=== PATIENT | female | born 1980 | race Caucasian/White ===

== ENCOUNTER 2019-01-06 11:08 | Emergency (ER) | payer OTHER ==
[2019-01-06 12:11] LABS: Absolute Lymphocytes (CBC) 2.2 K/uL (0.7-4.9); Absolute Monocytes 0.5 K/uL (0.1-1.3); Absolute Neutrophil 3.4 K/uL (1.8-8.0); Basophils % 0.5 % (0-1.3); Eosinophils % 0.9 % (0-4.4); Hematocrit 40.7 % (36.0-45.0); Lymphocytes % 36.1 % (15.3-44.8); Monocytes % 7.3 % (3.3-12.3); RBC Red Blood Cell Count 4.59 M/uL (3.86-4.86)
[2019-01-06 12:28] LABS: Albumin 4.1 g/dL (3.4-5.0); Bilirubin Direct 0.1 mg/dL (0-0.2); Bilirubin Total 0.3 mg/dL (0.2-1.0); Potassium 3.9 mmol/L (3.5-5.1); Protein, Total 7.3 g/dL (6.4-8.2)
[2019-01-06] MEDS ORDERED: ONDANSETRON 4 MG/2 ML VIAL ONE (12:31)
[2019-01-06] MEDS ORDERED: MORPHINE 4 MG/ML SYR ONE (12:31)
[2019-01-06] MEDS ORDERED: NA CHLORIDE 0.9% 1,000 ML ONE (12:31)
--- NOTE | 2019-01-06 12:57 | RAD REPORT ---
EXAM DESCRIPTION: CT - Abdomen Pelvis W Contrast - 01/06/2019 12:43 pm CLINICAL HISTORY: Right lower quadrant pain, worsening pain, diarrhea COMPARISON: July 2012 CT imaging TECHNIQUE: Biphasic, helical CT imaging of the abdomen and pelvis was performed following 100 ml non -ionic IV contrast. No oral contrast administered. All CT scans are performed using dose optimization technique as appropriate and may include automated exposure control or mA/KV adjustment according to patient size. FINDINGS: No suspicious findings in the lung bases. The liver, spleen, and pancreas show no suspicious findings. Gallbladder and biliary tree are also wi thout suspicious finding. Symmetric renal function is seen with no hydronephrosis or suspicious renal mass. No pyelonephritis o r acute parenchymal process. No bladder abnormalities. No adrenal abnormalities. No gastric dilatation or gastric wall thickening. There are several prominent fluid-filled small yusuf l loops. This could indicated nonspecific gastroenteritis. Moderate stool volume is present in the co [place]. Sigmoid colon tortuosity noted. No colon mass. Colitis/ diverticulitis are not evident. Appendec terrell clips are present. No free air, free fluid or inflammatory stranding. No hernia, mass or bulky lymphadenopathy. There i s a soft tissue structure in the pelvis having an appearance typical for the uterus. Hysterectomy his tory was provided. This is probably incorrect history. The presumed uterus is unchanged in appearance from 2012. Ovaries are not clearly defined and may be atrophic or absent. No suspicious bony findings. IMPRESSION: Prominent, nondilated small bowel loops. Findings likely reflect a nonspecific enteritis . Moderate stool volume with no acute colon process identifiable. No bowel obstruction, free air or surgically emergent finding.
--- NOTE | 2019-01-06 13:30 | EDPHYS ---
Physician Documentation [facility] Name: Susan Madrigal Age: 38 yrs Sex: Female : 1980 Arrival Date: 01/06/2019 Time: 11:10 Bed 15 Private MD: Severiano Lyons E ED Physician Jose R Diaz HPI: 01/06 12:00 This 38 yrs old Female presents to ER via Ambulatory with complaints of pm1 Abdominal Pain, Diarrhea. 12:00 The patient presents with abdominal pain right lower quadrant. Onset: The pm1 symptoms/episode began/occurred 3 year(s) ago. The symptoms do not radiate. Associated signs and symptoms: Pertinent positives: diarrhea, Pertinent negatives: nausea and vomiting, blood in stools, chest pain, dysuria, fever, shortness of breath, vomiting blood. The symptoms are described as crampy. Modifying factors: The symptoms are alleviated by nothing, the symptoms are aggravated by nothing. Severity of pain: in the emergency department the pain is actually worse. The patient has experienced similar episodes in the past, chronically, but today's symptoms are worse, lasting longer. The patient has not recently seen a physician. Patient with abdominal pain for 3 years that comes and goes. Has diarrhea almost daily with abdominal pain in the mornings. Pain typically only lasts about 3 days but her pain has been ongoing for 7 days. Patient evaluated by PCP and impression was possible IBS. 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 - Social history:: Smoking status: Patient/guardian denies using tobacco. - Ebola Screening: : No symptoms or risks identified at this time. ROS: 12:00 Constitutional: Negative for fever, chills, and weight loss, Eyes: Negative for injury, pm1 pain, redness, and discharge, ENT: Negative for injury, pain, and discharge, Neck: Negative for injury, pain, and swelling, Cardiovascular: Negative for chest pain, palpitations, and edema, Respiratory: Negative for shortness of breath, cough, wheezing, and pleuritic chest pain. 12:00 Back: Negative for injury and pain, : Negative for injury, bleeding, discharge, and swelling, MS/Extremity: Negative for injury and deformity, Skin: Negative for injury, rash, and discoloration, Neuro: Negative for headache, weakness, numbness, tingling, and seizure. 12:00 Abdomen/GI: Positive for abdominal pain, diarrhea, Negative for nausea and vomiting, black/tarry stool, rectal bleeding. Exam: 12:00 Constitutional: This is a well developed, well nourished patient who is awake, alert, pm1 and in no acute distress. Head/Face: Normocephalic, atraumatic. Eyes: Pupils equal round and reactive to light, extra-ocular motions intact. Lids and lashes normal. Conjunctiva and sclera are non-icteric and not injected. Cornea within normal limits. Periorbital areas with no swelling, redness, or edema. ENT: Nares patent. No nasal discharge, no septal abnormalities noted. Tympanic membranes are normal and external auditory canals are clear. Oropharynx with no redness, swelling, or masses, exudates, or evidence of obstruction, uvula midline. Mucous membranes moist. Neck: Trachea midline, no thyromegaly or masses palpated, and no cervical lymphadenopathy. Supple, full range of motion without nuchal rigidity, or vertebral point tenderness. No Meningismus. Chest/axilla: Normal chest wall appearance and motion. Nontender with no deformity. No lesions are appreciated. Cardiovascular: Regular rate and rhythm with a normal S1 and S2. No gallops, murmurs, or rubs. Normal PMI, no JVD. No pulse deficits. Respiratory: Lungs have equal breath sounds bilaterally, clear to auscultation and percussion. No rales, rhonchi or wheezes noted. No increased work of breathing, no retractions or nasal flaring. Abdomen/GI: Soft, non-tender, with normal bowel sounds. No distension or tympany. No guarding or rebound. No evidence of tenderness throughout. Back: No spinal tenderness. No costovertebral tenderness. Full range of motion. Skin: Warm, dry with normal turgor. Normal color with no rashes, no lesions, and no evidence of cellulitis. MS/ Extremity: Pulses equal, no cyanosis. Neurovascular intact. Full, normal range of motion. 12:00 Neuro: Orientation: is normal, Motor: is normal, moves all fours, Sensation: is normal, no obvious gross deficits. Vital Signs: 11:14 BP 90 / 71; Pulse 106; Resp 16 S; Temp 99.4(TE); Pulse Ox 100% on R/A; Weight 72.57 kg aa5 (R); Height 5 ft. 8 in. (172.72 cm) (R); Pain 6/10; 13:32 BP 105 / 69; Pulse 82; Resp 16; Temp 98.2; Pulse Ox 100% on R/A; Pain 5/10; ls4 11:14 Body Mass Index 24.33 (72.57 kg, 172.72 cm) aa5 MDM: 11:42 Patient medically screened. pm1 13:28 Data reviewed: vital signs. Data interpreted: Pulse oximetry: on room air is 100 %. pm1 Interpretation: normal. Counseling: I had a detailed discussion with the patient and/or guardian regarding: the historical points, exam findings, and any diagnostic results supporting the discharge/admit diagnosis, lab results, radiology results, the need for outpatient follow up, to return to the emergency department if symptoms worsen or persist or if there are any questions or concerns that arise at home. 01/06 11:52 Order name: Basic Metabolic Panel; Complete Time: 13:08 pm01/06 11:52 Order name: CBC with Diff pm1 01/06 11:52 Order name: Creatinine for Radiology; Complete Time: 12:25 pm1 01/06 11:52 Order name: Hepatic Function; Complete Time: 13:08 pm01/06 11:52 Order name: Lipase; Complete Time: 13:08 pm01/06 12:38 Order name: Urine Dipstick--Ancillary (enter results) 01/06 11:52 Order name: CT Abd/Pelvis - W/Contrast: IV contrast only; Complete Time: 13:08 pm01/06 12:38 Order name: Urine --Ancillary (enter results) 01/06 11:52 Order name: IV Saline Lock; Complete Time: 12:07 pm01/06 11:52 Order name: Labs collected and sent; Complete Time: 12:07 pm01/06 11:52 Order name: Urine Dipstick-Ancillary (obtain specimen); Complete Time: 12:17 pm1 Administered Medications: 12:26 Drug: morphine 4 mg Route: IVP; Site: right antecubital; ls4 12:49 Follow up: Response: No adverse reaction; Marked relief of symptoms ls4 12:26 Drug: Zofran 4 mg Route: IVP; Site: right antecubital; ls4 12:49 Follow up: Response: No adverse reaction; Marked relief of symptoms ls4 12:31 Drug: NS 0.9% 1000 ml Route: IV; Rate: 1000 ml; Site: right antecubital; ls4 12:50 Follow up: IV Status: Completed infusion; IV Intake: 1000ml ls4 13:47 Drug: Bentyl 20 mg Route: PO; ls4 13:47 Drug: TORadol 30 mg Route: IVP; Site: right antecubital; ls4 Disposition: 01/06/19 13:30 Discharged to Home. Impression: Unspecified abdominal pain, Diarrhea, unspecified. - Condition is Stable. - Discharge Instructions: Abdominal Pain, Adult, Food Choices to Help Relieve Diarrhea, Adult, Diarrhea, Adult. - Prescriptions for Bentyl 20 mg Oral Tablet - take 1 tablet by ORAL route every 6 hours As needed; 20 tablet. Zofran 4 mg Oral Tablet - take 1 tablet by ORAL route every 12 hours As needed; 20 tablet. - Medication Reconciliation Form, Thank You Letter, Antibiotic Education form. - Follow up: Emergency Department; When: As needed; Reason: Worsening of condition. Follow up: Severiano Bee MD; When: 2 - 3 days; Reason: Recheck today's complaints, Continuance of care, Re-evaluation by your physician. - Problem is new. - Symptoms have improved. Signatures: Dispatcher [employer] EDSD Maricel Bass, RN RN aa5 Roger Davis NP PETROLEUM GEOLOGIST pm1 Zoe Lugo RN RN ls4 Corrections: (The following items were deleted from the chart) 14:00 13:30 01/06/2019 13:30 Discharged to Home. Impression: Unspecified abdominal pain; ls4 Diarrhea, unspecified. Condition is Stable. Forms are Medication Reconciliation Form, Thank You Letter, Antibiotic Education, Prescription Opioid Use. Follow up: Emergency Department; When: As needed; Reason: Worsening of condition. Follow up: Severiano Bee; When: 2 - 3 days; Reason: Recheck today's complaints, Continuance of care, Re-evaluation by your physician. Problem is new. Symptoms have improved. pm1
--- NOTE | 2019-01-06 13:30 | ER ---
Nurse's Notes [facility] Name: Susan Madrigal Age: 38 yrs Sex: Female : 1980 Arrival Date: 01/06/2019 Time: 11:10 Bed 15 Private MD: Severiano Lyons E Diagnosis: Unspecified abdominal pain;Diarrhea, unspecified Presentation: 01/06 11:12 Presenting complaint: Patient states: lower abd pain that has gotten worse over the aa5 last week. Pt reports hx of IBS. Pt also reports nausea and diarrhea, denies vomiting. Transition of care: patient was not received from another setting of care. Onset of symptoms was December 2018. Risk Assessment: Do you want to hurt yourself or someone else? Patient reports no desire to harm self or others. Initial Sepsis Screen: Does the patient meet any 2 criteria? No. Patient's initial sepsis screen is negative. Does the patient have a suspected source of infection? No. Patient's initial sepsis screen is negative. Care prior to arrival: None. 11:12 Method Of Arrival: Ambulatory aa5 11:12 Acuity: JHOAN 3 aa5 Triage Assessment: 12:14 General: Appears in no apparent distress. Behavior is calm, cooperative. Pain: ls4 Complains of pain in suprapubic area Pain currently is 6 out of 10 on a pain scale. GI: Abdomen is flat, non-distended, Bowel sounds present X 4 quads. Abdomen is tender to palpation. 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 - Social history:: Smoking status: Patient/guardian denies using tobacco. - Ebola Screening: : No symptoms or risks identified at this time. Screenin:13 Abuse screen: Denies threats or abuse. Denies injuries from another. Nutritional ls4 screening: No deficits noted. Tuberculosis screening: No symptoms or risk factors identified. The patient passed the bedside swallow screening. Oral medications may be given as ordered. Contact Physician for further diet orders. Fall Risk None identified. Vital Signs: 11:14 BP 90 / 71; Pulse 106; Resp 16 S; Temp 99.4(TE); Pulse Ox 100% on R/A; Weight 72.57 kg aa5 (R); Height 5 ft. 8 in. (172.72 cm) (R); Pain 6/10; 13:32 BP 105 / 69; Pulse 82; Resp 16; Temp 98.2; Pulse Ox 100% on R/A; Pain 5/10; ls4 11:14 Body Mass Index 24.33 (72.57 kg, 172.72 cm) aa5 ED Course: 11:10 Patient arrived in ED. mr 11:10 Severiano Lyons MD is Private Physician. mr 11:12 Arm band placed on. aa5 11:13 Triage completed. aa5 11:34 Roger Davis NP is [facility]. pm1 11:34 Jose R Diaz MD is Attending Physician. pm1 11:56 Zoe Lugo, ANTONIO is Primary Nurse. ls4 12:07 Basic Metabolic Panel Sent. ls4 12:07 CBC with Diff Sent. ls4 12:07 Creatinine for Radiology Sent. ls4 12:07 Hepatic Function Sent. ls4 12:07 Lipase Sent. ls4 12:07 Initial lab(s) drawn, by ks, sent to lab. Urine collected: clean catch specimen, clear. ls4 Inserted saline lock: 20 gauge in right antecubital area, using aseptic technique. Blood collected. 12:13 Patient has correct armband on for positive identification. Placed in gown. Bed in low ls4 position. Call light in reach. Side rails up X 1. Warm blanket given. 12:13 No provider procedures requiring assistance completed. ls4 12:42 CT completed. Patient tolerated procedure well. Patient moved to CT via wheelchair. jg6 Patient moved back from CT. 12:43 CT Abd/Pelvis - W/Contrast: IV contrast only In Process Unspecified. EDMS 13:29 Severiano Bee MD is Referral Physician. pm1 Administered Medications: 12:26 Drug: morphine 4 mg Route: IVP; Site: right antecubital; ls4 12:49 Follow up: Response: No adverse reaction; Marked relief of symptoms ls4 12:26 Drug: Zofran 4 mg Route: IVP; Site: right antecubital; ls4 12:49 Follow up: Response: No adverse reaction; Marked relief of symptoms ls4 12:31 Drug: NS 0.9% 1000 ml Route: IV; Rate: 1000 ml; Site: right antecubital; ls4 12:50 Follow up: IV Status: Completed infusion; IV Intake: 1000ml ls4 13:47 Drug: Bentyl 20 mg Route: PO; ls4 13:47 Drug: TORadol 30 mg Route: IVP; Site: right antecubital; ls4 Intake: 12:50 IV: 1000ml; Total: 1000ml. ls4 Outcome: 13:30 Discharge ordered by . pm1 14:00 Patient left the ED. ls4 Signatures: Dispatcher [employer] EDMA Elham Plascencia KaliMaricel, RN RN aa5 Roger Davis NP PACKING LINE OPERATOR pm1 Christy Bradley6 Zoe Lugo RN RN ls4
[2019-01-06] MEDS ORDERED: DICYCLOMINE HCL 10 MG CAP ONE (13:55)
[2019-01-06] MEDS ORDERED: KETOROLAC 30 MG/ML INJ ONE (13:55)
[2019-01-06 14:13] LABS: Urine Blood NEGATIVE (NEG); Urine Glucose NEGATIVE (NEG); Urine Protein NEGATIVE (NEG)
[2019-01-06 14:43] VITALS: O2SAT 100
[2019-01-06 14:44] VITALS: BP 105/69; TEMP 98.2
== END 2019-01-06 14:00 | disposition home or self-care (01) ==
LOC: ER 11:08
DX: R19.7 Diarrhea, unspecified (principal)
CPT/HCPCS: 36415; 74177; 80048; 80076; 81003; 81025; 83690; 85025; 96374; 96375; 99284; J2405; J7030; Q9967

== ENCOUNTER 2020-01-04 19:59 | Emergency (ER) | payer OTHER ==
--- OUTSIDE RECORDS SUMMARY | 2020-01-04 20:01 | XMS REPORT | Summary of Care ---
:1980 Author Organization [facility] - Health Address [address] [place] [id number] Care Team Providers Name Role Phone Severiano Lyons Primary Care Provider Encounter Details Date Type Department Care Team Description 07/18/2019 Orders Only [facility] Doctor Unassigned, No 301 [facility] Name [place] [id number] [address] [place] [phone] Allergies No Known Allergiesdocumented as of this encounter (statuses as of 07/18/2019) Medications Medication Sig Dispensed Refills Start Date End Date Status ibuprofen 800 mg Take 800 mg by 0 Active tablet mouth every 6 (six) hours as needed for Pain (scale 1-3) or Pain (scale 4-6). traMADOL 50 mg tablet Take 50 mg by 0 Active mouth 3 (three) times daily. ondansetron (ZOFRAN) 4 Take 1 tablet by 10 tablet 0 04/24/2019 Active mg tabletIndications: mouth every 8 Abdominal pain in (eight) hours as female needed for Nausea and Vomiting (N/V) for up to 10 doses. acetaminophen-codeine Take 1 tablet by 20 tablet 0 04/24/2019 Active 300-30 mg mouth every 6 tabletIndications: (six) hours as Abdominal pain in needed for Pain female (scale 4-6) for up to 20 doses. documented as of this encounter (statuses as of 07/18/2019) Active Problems Not on filedocumented as of this encounter (statuses as of 07/18/2019) Immunizations Name Administration Dates Next Due Td 04/02/2017 documented as of this encounter Social History Tobacco Use Types Packs/Day Years Used Date Never Assessed Sex Assigned at Date Recorded Not on file Job Start Date Occupation Industry Not on file Not on file Not on file Travel History Travel Start Travel End No recent travel history available. documented as of this encounter Last Filed Vital Signs Not on filedocumented in this encounter Plan of Treatment Health Maintenance Due Date Last Done Comments PAP SMEAR 01/28/2001 DTaP,Tdap,and Td Vaccines (1 - 04/03/2017 04/02/2017 Tdap) INFLUENZA VACCINE (Retired 07/17/2019 version) PNEUMOCOCCAL 0-64 YEARS COMBINED Aged Out No longer eligible based on SERIES patient's age to complete this topic documented as of this encounter Procedures Procedure Name Priority Date/Time Associated Diagnosis Comments CONSENT/REFUSAL FOR Routine 07/18/2019 2:50 PM CDT DIAGNOSIS AND TREATMENT documented in this encounter Results Not on filedocumented in this encounter Insurance Payer Benefit Plan / Group Subscriber ID Effective Dates Phone Address Type [place] [id number] 2012-Present [place] [id number] 2019-Present documented as of this encounter
--- OUTSIDE RECORDS SUMMARY | 2020-01-04 20:01 | XMS REPORT ---
:1980 [facility] Address [address] [place] [address] Dr. Alcazar [address] [place] [id number] Care Team Providers Name Role Phone Unavailable Unavailable Unavailable Problems This patient has no known problems. Allergies, Adverse Reactions, Alerts This patient has no known allergies or adverse reactions. Medications This patient has no known medications.
--- OUTSIDE RECORDS SUMMARY | 2020-01-04 20:02 | XMS REPORT | Summary of Care ---
:1980 Author Organization [facility] - Health Address [address] [place] [address] Care Team Providers Name Role Phone Severiano Lyons Primary Care Provider Encounter Details Date Type Department Care Team Description 01/04/2020 Orders Only [facility] Doctor Unassigned, No 301 [facility] [place] [address] [address] [place] [phone] Allergies No Known Allergiesdocumented as of this encounter (statuses as of 01/04/2020) Medications Medication Sig Dispensed Refills Start Date [...] (scale 4-6) for up to 20 doses. dicyclomine (BENTYL) Take 1 tablet by 15 tablet 0 07/18/2019 Active 20 mg mouth 4 (four) tabletIndications: times daily as Abdominal pain, needed for unspecified abdominal Abdominal pain. location, Urinary tract infection without hematuria, site unspecified, Fever, unspecified fever cause, Tachycardia proMETHazine 25 mg Take 0.5 tablets 8 tablet 0 07/18/2019 Active tabletIndications: by mouth every 6 Abdominal pain, (six) hours as unspecified abdominal needed for Nausea location, Urinary and Vomiting tract infection (N/V). 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
--- OUTSIDE RECORDS SUMMARY | 2020-01-04 20:02 | XMS REPORT | Summary of Care ---
:1980 Author Organization [facility] - [facility] Address [address] [place] [address] Care Team Providers Name Role Phone Severiano Lyons Primary Care Provider Reason for Referral MRI/CAT Scan (STAT) Status Reason Specialty Diagnoses / Referred By Referred To Procedures Contact Contact New Request Diagnostic Diagnoses Abdominal pain, unspecified abdominal location Joselin Baugh, Radiology Procedures CT ABDOMEN PELVIS W CONTRAST [address] [address] MRI/CAT Scan (STAT) Status Reason Specialty Diagnoses / Referred By Referred To Procedures Contact Contact New Request Diagnostic Diagnoses Abdominal pain, unspecified abdominal location Joeslin Baugh, Radiology Procedures CT ABDOMEN PELVIS W CONTRAST [address] [id number] Reason for Visit Reason Comments Abdominal Pain Fever Auth/Cert Status Reason Specialty Diagnoses / Referred By Referred To Procedures Contact Contact Emergency Medicine Diagnoses ABD [facility]IN [facility] [address] [place] [address] [place] [address] Encounter Details Date Type Department Care Team Description 07/18/2019 Emergency [facility] Joselin Baugh FNP Abdominal pain, unspecified abdominal location (Primary Dx); Department [address] [place] [address] Urinary tract infection without hematuria, site unspecified; [address] [place] [address] Dr [place] Fever, unspecified fever cause; [place] [id number] Tachycardia [phone] Allergies No Known Allergiesdocumented as of this encounter (statuses as of 07/18/2019) Medications Medication Sig Dispensed Refills Start Date End Date Status ibuprofen 800 mg Take 800 mg by 0 Active tablet mouth every 6 (six) hours as needed for Pain (scale 1-3) or Pain (scale 4-6). traMADOL 50 mg Take 50 mg by 0 Active tablet mouth 3 (three) times daily. ondansetron (ZOFRAN) Take 1 tablet by 10 tablet 0 04/24/2019 Active 4 mg mouth every 8 tabletIndications: (eight) hours as Abdominal pain in needed for Nausea female and Vomiting (N/V) for up to 10 doses. acetaminophen-codein Take 1 tablet by 20 tablet 0 04/24/2019 Active e 300-30 mg mouth every 6 tabletIndications: (six) hours as Abdominal pain in needed for Pain female (scale 4-6) for up to 20 doses. cephALEXin 500 mg Take 1 capsule by 14 capsule 0 07/18/2019 07/25/2019 Active capsuleIndications: mouth 2 (two) Abdominal pain, times daily for 7 unspecified days. abdominal location, Urinary tract infection without hematuria, site unspecified, Fever, unspecified fever cause, Tachycardia dicyclomine (BENTYL) Take 1 tablet by 15 tablet 0 07/18/2019 Active 20 mg mouth 4 (four) tabletIndications: times daily as Abdominal pain, needed for unspecified Abdominal pain. abdominal location, Urinary tract infection without hematuria, site unspecified, Fever, unspecified fever cause, Tachycardia proMETHazine 25 mg Take 0.5 tablets 8 tablet 0 07/18/2019 Active tabletIndications: by mouth every 6 Abdominal pain, (six) hours as unspecified needed for Nausea abdominal location, and Vomiting Urinary tract (N/V). infection without hematuria, site unspecified, Fever, unspecified [...] of this encounter Last Filed Vital Signs Vital Sign Reading Time Taken Comments Blood Pressure 105/71 07/18/2019 6:15 PM CDT Pulse 68 07/18/2019 6:16 PM CDT Temperature 38.1 C (100.5 F) 07/18/2019 3:00 PM CDT Respiratory Rate 20 07/18/2019 5:50 PM CDT Oxygen Saturation 100% 07/18/2019 6:15 PM CDT Inhaled Oxygen Concentration - - Weight 63.5 kg (140 lb) 07/18/2019 3:00 PM CDT Height 172.7 cm (5' 8") 07/18/2019 3:00 PM CDT Body Mass Index 21.29 07/18/2019 3:00 PM CDT documented in this encounter Discharge Instructions Joselin Gibson FNP - 07/18/2019DIAGNOSIS 1. Abdominal pain 2. Urinary tract infection 3. Fever NO LIFE-THREATENING FINDINGS ON TODAY'S EXAM. PROCEDURES IN THE ER TODAY: Labs Urinalysis CT MEDICATIONS ADMINISTERED IN THE ER TODAY: Morphine Toradol Fentanyl Bentyl Fluids Zofran Ancef YOUR PRESCRIPTIONS AND [id number] MEDICATION RECOMMENDATIONS: Bentyl Phenergan Keflex SPECIAL CARE INSTRUCTIONS: Follow up with your card cutter FOLLOW-UP RECOMMENDATIONS: RECOMMEND FOLLOW-UP WITH A PRIMARY CARE PROVIDER OR SPECIALIST IN 2-5 DAYS, ESPECIALLY IF NO IMPROVEMENT IN SYMPTOMS. TO FOLLOW-UP WITHIN THE [facility], TRY THESE OPTIONS (CLINIC APPOINTMENTS AVAILABLE ON OCTT-AD-WNEB BASIS): 1. SCHEDULE AN APPOINTMENT ONLINE AT [facility] 2. OR CALL THE [facility] AT OR 3. OR CALL YOUR [facility] PHYSICIAN'S OFFICE DIRECTLY IF YOU ARE ALREADY AN ESTABLISHED [facility] PATIENT. OR, YOU MAY FOLLOW-UP WITH A PROVIDER OF YOUR CHOICE, SUCH : 1. A PHYSICIAN OF YOUR CHOICE 2. [facility], . LOCATIONS IN [facility] 3. [facility], [address] [place] [address]; RETURN TO ER FOR WORSENING OF SYMPTOMS. AttachmentsThe following attachments cannot be sent through Care Everywhere.Cephalexin tablets or capsules (Senegalese)Promethazine tablets (Senegalese )Dicyclomine tablets or capsules (Senegalese)documented in this encounter Plan of Treatment Name Type Priority Associated Diagnoses Date/Time URINE CULTURE LAB STAT Abdominal pain, unspecified 07/18/2019 6:14 PM CDT abdominal location Name Type Priority Associated Diagnoses Order Schedule URINE CULTURE LAB Routine Abdominal pain, unspecified ONCE for 1 Occurrences abdominal location starting 07/18/2019 until 07/18/2019 Health Maintenance Due Date Last Done Comments PAP SMEAR 01/28/2001 DTaP,Tdap,and Td Vaccines (1 - 04/03/2017 04/02/2017 Tdap) INFLUENZA VACCINE (#1) 2019 PNEUMOCOCCAL 0-64 YEARS COMBINED Aged Out No longer eligible based on SERIES patient's age to complete this topic documented as of this encounter Procedures Procedure Name Priority Date/Time Associated Comments Diagnosis CT ABDOMEN PELVIS W STAT 07/18/2019 4:57 Abdominal pain, Results for this CONTRAST PM CDT unspecified procedure are in abdominal location the results section. CBC WITH STAT 07/18/2019 3:28 Abdominal pain, Results for this DIFFERENTIAL PM CDT unspecified procedure are in abdominal location the results section. POCT TEST BELEN 07/18/2019 3:28 Abdominal pain, Results for this PM CDT unspecified procedure are in abdominal location the results section. URINALYSIS STAT 07/18/2019 3:28 Abdominal pain, Results for this PM CDT unspecified procedure are in abdominal location the results section. CBC WITH DIFF STAT 07/18/2019 3:28 Abdominal pain, Results for this PM CDT unspecified procedure are in abdominal location the results section. COMP. METABOLIC STAT 07/18/2019 3:28 Abdominal pain, Results for this PANEL (61592) PM CDT unspecified procedure are in abdominal location the results section. TROPONIN I STAT Add-On 07/18/2019 3:28 Abdominal pain, Results for this PM CDT unspecified procedure are in abdominal location the results section. LIPASE STAT 07/18/2019 3:28 Abdominal pain, Results for this PM CDT unspecified procedure are in abdominal location the results section. LACTIC ACID WHOLE STAT 07/18/2019 3:27 Abdominal pain, Results for this BLOOD PM CDT unspecified procedure are in abdominal location the results section. NOTICE OF PRIVACY Routine 07/18/2019 2:50 PRACTICES PM CDT documented in this encounter Results CT ABDOMEN PELVIS W CONTRAST (07/18/2019 4:57 PM CDT) Specimen Impressions Performed At PACS/VR/DOSE 1.Mild concentric bladder wall thickening concerning for cystitis. Laboratory correlation is recommended . Huy Rosado MD., have reviewed this study and agree with the above report. Narrative Performed At EXAM: CT ABDOMEN/PELVIS WITH CONTRAST PACS/VR/DOSE HISTORY:39 years-old Female presenting with Abd pain, acute, generalized, with fever COMPARISON: CT abdomen pelvis 04/24/2019 DOSE: 261 mGycm TECHNIQUE AND FINDINGS: Contiguous axial imaging from the level of the lung bases through the pubic symphysis was performed after the uncomplicated administration of 120 cc of intravenous Omnipaque contrast. Coronal and sagittal reconstructions were obtained.Auto mA and/or iterative reconstruction were used to reduce radiation dose. FINDINGS: LOWER THORAX: The lung bases are clear. No cardiomegaly. HEPATOBILIARY: Subcentimeter hypodensity in hepatic segment IV CT for further characterize, but likely represents a simple hepatic cysts. No biliary ductal dilation. No gallbladder wall thickening. SPLEEN: No splenomegaly. No abnormality identified in the spleen. PANCREAS: No ductal dilation or masses. No abnormality identified in the pancreas. ADRENAL GLANDS: No adrenal nodules. No abnormality identified in the adrenal glands. KIDNEYS: No hydronephrosis, stones, or masses. The kidneys enhance symmetrically without evidence of wedge-shaped hypodensities. PERITONEUM AND RETROPERITONEUM: No free air or fluid. LYMPH NODES: No enlarged lymph nodes by CT size criteria. GI TRACT: No bowel wall thickening or dilation. Prior appendectomy. PELVIS/BLADDER: Prior partial hysterectomy. The urinary bladder is distended with mild concentric wall thickening. 2.1 cm cyst is seen in the right ovary likely consistent with a dominant follicle. VESSELS: Unremarkable. BONES AND SOFT TISSUES: A T12 superior endplate Schmorl's node is noted. No suspicious lytic or sclerotic bony lesions. Procedure Note [facility], Radiant Results Inft User - 07/18/2019 7:21 PM CDT EXAM: CT ABDOMEN/PELVIS WITH CONTRAST HISTORY: 39 years-old Female presenting with Abd pain, acute, generalized, with fever COMPARISON: CT abdomen pelvis 04/24/2019 DOSE: 261 mGycm TECHNIQUE AND FINDINGS: Contiguous axial imaging from the level of the lung bases through the pubic symphysis was performed after the uncomplicated administration of 120 cc of intravenous Omnipaque contrast. Coronal and sagittal reconstructions were obtained. Auto mA and/or iterative reconstruction were used to reduce radiation dose. FINDINGS: LOWER THORAX: The lung bases are clear. No cardiomegaly. HEPATOBILIARY: Subcentimeter hypodensity in hepatic segment IV CT for further characterize, but likely represents a simple hepatic cysts. No biliary ductal dilation. No gallbladder wall thickening. SPLEEN: No splenomegaly. No abnormality identified in the spleen. PANCREAS: No ductal dilation or masses. No abnormality identified in the pancreas. ADRENAL GLANDS: No adrenal nodules. No abnormality identified in the adrenal glands. KIDNEYS: No hydronephrosis, stones, or masses. The kidneys enhance symmetrically without evidence of wedge-shaped hypodensities. PERITONEUM AND RETROPERITONEUM: No free air or fluid. LYMPH NODES: No enlarged lymph nodes by CT size criteria. GI TRACT: No bowel wall thickening or dilation. Prior appendectomy. PELVIS/BLADDER: Prior partial hysterectomy. The urinary bladder is distended with mild concentric wall thickening. 2.1 cm cyst is seen in the right ovary likely consistent with a dominant follicle. VESSELS: Unremarkable. BONES AND SOFT TISSUES: A T12 superior endplate Schmorl's node is noted. No suspicious lytic or sclerotic bony lesions. IMPRESSION 1. Mild concentric bladder wall thickening concerning for cystitis. Laboratory correlation is recommended . IJacey MD., have reviewed this study and agree with the above report. Performing Organization Address City/State/Zipcode Phone Number PACS/VR/DOSE TROPONIN I (07/18/2019 3:28 PM CDT) TROPONIN I <0.012 <=0.034 ng/mL [facility] Specimen Blood - ARM, RIGHT Narrative Performed At Equal or Less than 0.034 ng/ml---Normal [facility] Note: Cardiac troponin begins to rise 3-4 hours after the onset of ischemia. Repeat in 4-6 hours if the sample was drawn within 3-4 hours of the onset of the symptom and found normal. Between 0.035 and 0.120 ng/mL--- Borderline. Questionable myocardial injury or necrosis Note: Serial measurement may be necessary to confirm or exclude the diagnosis of myocardial injury or necrosis; Clinical correlation (symptoms, EKGs, imaging studies, and others) required; Repeat in 4-6 hours if clinically indicated. Equal or Higher than 0.121 ng/mL---Abnormal. Myocardial Injury or Necrosis Likely Biotin has been reported to cause a negative bias, interpret results relative to patient's use of biotin. Performing Organization Address City/[facility]/Zipcode Phone Number [facility] CLIA: [id number], [address] [place] [address] LIPASE (07/18/2019 3:28 PM CDT) LIPASE 165 0 - 220 U/L [facility] Specimen Blood - ARM, RIGHT Performing Organization Address [facility]/Zipcode Phone Number [facility] CLIA: [id number], [address] [place] [address] CBC WITH DIFFERENTIAL (07/18/2019 3:28 PM CDT) WBC 5.17 4.30 - 11.10 [facility] 10*3/L [facility] RBC 4.90 3.93 - 5.25 [facility] 10*6/L HOSPITAL LABORATORY HGB 14.9 11.6 - 15.0 g/dL [facility] HCT 43.1 35.7 - 45.2 % [facility] MCV 88.0 80.6 - 95.5 fL [facility] MCH 30.4 25.9 - 32.8 pg [facility] MCHC 34.6 31.6 - 35.1 g/dL [facility] RDW-SD 39.7 39.0 - 49.9 fL [facility] RDW-CV 12.5 12.0 - 15.5 % [facility] PLT 349 166 - 358 [facility] 10*3/L [facility] MPV 10.8 9.5 - 12.9 fL [facility] NRBC/100 WBC 0.0 0.0 - 10.0 /100 [facility] NRBC x10^3 <0.01 10*3/L [facility] GRAN MAT (NEUT) % 51.7 % [facility] IMM GRAN % 0.40 % [facility] LYMPH % 37.9 % [facility] MONO % 7.5 % [facility] EOS % 1.5 % [facility] BASO % 1.0 % [facility] GRAN MAT x10^3(ANC) 2.67 1.88 - 7.09 [facility] 10*3/uL HOSPITAL LABORATORY IMM GRAN x10^3 <0.03 0.00 - 0.06 [facility] 10*3/uL HOSPITAL [facility] LYMPH x10^3 1.96 1.32 - 3.29 [facility] 10*3/uL HOSPITAL LAB[facility]ORY MONO x10^3 0.39 0.33 - 0.92 [facility] 10*3/uL HOSPITAL LAB[facility]ORY EOS x10^3 0.08 0.03 - 0.39 [facility] 10*3/uL [facility] BASO x10^3 0.05 0.01 - 0.[address]uL [facility] Specimen Blood - ARM, RIGHT Performing Organization Address City/State/Zipcode Phone Number [facility] CLIA: [id number], [address] [place] [address] URINALYSIS (07/18/2019 3:28 PM CDT) APPEARANCE Slightly Cloudy (A) Clear [facility] COLOR Yellow Yellow [facility] PH 5.5 4.8 - 8.0 [facility] SP GRAVITY 1.025 1.003 - 1.030 [facility] GLU U QUAL Negative Negative [facility] BLOOD Negative Negative [facility] KETONES Trace (A) Negative [facility] PROTEIN 30 mg/dL (A) Negative [facility] UROBILIN 0.2 mg/dL 0-1.0 mg/dL [facility] BILIRUBIN Small (A) Negative [facility] NITRITE Negative Negative [facility] LEUK LIVAN Negative Negative [facility] RBC/HPF 0 0 - 3 HPF [facility] WBC/HPF 10 (H) 0 - 5 HPF [facility] BACTERIA Many (A) Negative [facility] TRANS EPI 3 (H) <=1 HPF [facility] ELADIA EPITH 5 HPF [facility] Ictotest Negative [facility] Specimen Urine - URINE, CLEAN CATCH Performing Organization Address City/State/Zipcode Phone Number [facility] CLIA: [id number], [address] [place] [address] POCT TEST (07/18/2019 3:28 PM CDT) POCT PREG NEGATIVE On board controls acceptable present with C Line POCT PREG LOT # [id number] POCT PREG TEST DATE 11/15/2020 Specimen Urine - URINE, CLEAN CATCH COMP. METABOLIC PANEL (80694) (07/18/2019 3:28 PM CDT) NA 143 135 - 145 [facility] mmol/L [facility] K 3.9 3.5 - 5.0 [facility] mmol/L [facility] CL 104 98 - 108 mmol/L [facility] CO2 TOTAL 24 23 - 31 mmol/L [facility] AGAP 15 2 - 16 [facility] BUN 12 7 - 23 mg/dL [facility] GLUCOSE 107 70 - 110 mg/dL [facility] CREATININE 1.16 (H) 0.50 - 1.04 [facility] mg/dL [facility] TOTAL BILI 0.6 0.1 - 1.1 mg/dL [facility] CALCIUM 9.6 8.6 - 10.6 [facility] mg/dL [facility] T PROTEIN 8.6 (H) 6.3 - 8.2 g/dL [facility] ALBUMIN 4.9 3.5 - 5.0 g/dL [facility] ALK PHOS 45 34 - 122 U/L [facility] ALT(SGPT) 13 9 - 51 U/L [facility] AST(SGOT) 23 13 - 40 U/L [facility] eGFR Calculation 52.0 mL/min/1.73m2 [facility] ([facility] Hungarian) eGFR Calculation 63.0 mL/min/1.73m2 [facility] () [facility] Specimen Blood - ARM, RIGHT Narrative Performed At Association of Glomerular Filtration Rate (GFR) [facility] and Staging of Kidney Disease* + + +- + | GFR (mL/min/1.73 m2)| With Kidney Damage|Without Kidney Damage + + +- + |>90| Stage one| Normal + + +- + |60-89|S tage two| Decreased GFR + + +- + |30-59|S tage three| Stage three + + +- + |15-29|S tage four | Stage four + + +- + |<15 (or dialysis)|Stage five | Stage five + + +- + *Each stage assumes the associated GFR level has been in effect for at least three months.Stages 1 to 5, with or without kidney disease, indicate chronic kidney disease. Notes: Determination of stages one and two (with eGFR >59mL/min/1.73 m2) requires estimation of kidney damage for at least three months as defined by structural or functional abnormalities of the kidney, manifested by either: Pathological abnormalities or Markers of kidney damage (including abnormalities in the composition of the blood or urine or abnormalities in imaging tests). Performing Organization Address [facility] Cent[facility]ode Phone Number [facility] CLIA: [id number], [address] [place] [address] Lactic Acid Whole Blood (07/18/2019 3:27 PM CDT) LACTIC ACID 1.39 0.50 - 2.20 mmol/L [facility] Specimen Blood - ARM, RIGHT Performing Organization Address [facility] Centercode Phone Number [facility] CLIA: [id number], [address] [place] [address] [address] documented in this encounter Visit Diagnoses Diagnosis Abdominal pain, unspecified abdominal location - Primary Urinary tract infection without hematuria, site unspecified Fever, unspecified fever cause Tachycardia Tachycardia, unspecified documented in this encounter Administered Medications Medication Order MAR Action Action Date Dose Rate Site acetaminophen (TYLENOL) tablet Given 07/18/2019 3:31 PM CDT 650 mg 650 mg 650 mg, Oral, ONCE, 1 dose, Thu07/18/19 at 1615, BELEN ceFAZolin (ANCEF) 1,000 mg in NaCl 0.9% Given 07/18/2019 6:33 PM CDT 1,000 mg (NS) 50 mL MINI-BAG 1,000 mg, IV Piggyback, ONCE, 1 dose, Thu07/18/19 at 1930, 50 mL, Reason for Anti-Infective: Documented Infection, Documented Infection Site: Urine, Duration of Therapy: 7 days dicyclomine (BENTYL) capsule 20 mg Given 07/18/2019 5:53 PM CDT 20 mg 20 mg, Oral, ONCE, 1 dose, Thu07/18/19 at 1830, Routine famotidine (PEPCID (PF)) injection 20 mg Given 07/18/2019 3:31 PM CDT 20 mg 20 mg, Slow IV Push, ONCE, 1 dose, Thu07/18/19 at 1615, BELEN FENTanyl PF (SUBLIMAZE (PF)) injection 50 Given 07/18/2019 5:51 PM CDT 50 mcg mcg 50 mcg, Slow IV Push, ONCE, 1 dose, Thu07/18/19 at 1830, STAT iohexol (OMNIPAQUE 350 BULK-150 mL) Given 07/18/2019 4:45 PM CDT 120 mL injection 120 mL 120 mL, Intravenous, ONCE, 1 dose, Thu07/18/19 at 1700, Routine ketorolac (TORADOL) injection 30 mg Given 07/18/2019 5:48 PM CDT 30 mg 30 mg, Slow IV Push, ONCE, 1 dose, Thu07/18/19 at 1830, BELEN, body team member approving Restricted medication: JOSELIN BAUGH lactated ringers IV infusion New Bag 07/18/2019 5:20 PM CDT 1,000 mL 999 mL/hr 1,000 mL at 999 mL/hr, 1,000 mL, IV Infusion, ONCE, 1 dose, Thu07/18/19 at 1800, BELEN maalox:diphenhydrAMINE:lidocaine2 %viscous Given 07/18/2019 4:15 PM CDT 15 mL 1:1:1: suspension (COMPOUNDED) 15 mL, Oral, ONCE, 1 dose, Thu07/18/19 at 1615, Routine morpHINE injection 4 mg Given 07/18/2019 3:30 PM CDT 4 mg 4 mg, Slow IV Push, ONCE, 1 dose, Thu07/18/19 at 1615, STAT NaCl 0.9% (NS) bolus infusion New Bag 07/18/2019 3:30 PM CDT 1,000 mL 999 mL/hr 1,000 mL at 999 mL/hr, 1,000 mL, IV Infusion, ONCE, 1 dose, Thu07/18/19 at 1615, STAT proMETHazine (PHENERGAN) 12.5 mg in NaCl Given 07/18/2019 4:15 PM CDT 12.5 mg 0.9% (NS) 50 mL piggyback 12.5 mg, IV Piggyback, ONCE, 1 dose, 07/18/19 at 1615, 50 mL documented in this encounter documented as of this encounter
[2020-01-04] MEDS ORDERED: MORPHINE 4 MG/ML SYR ONE (20:48)
[2020-01-04] MEDS ORDERED: ONDANSETRON 4 MG/2 ML VIAL ONE (20:48)
[2020-01-04 20:51] LABS: Hematocrit 41.7 % (36.0-45.0); RBC Red Blood Cell Count 4.61 M/uL (3.86-4.86)
[2020-01-04 20:52] LABS: Absolute Lymphocytes (CBC) 2.4 K/uL (0.7-4.9); Basophils % 0.5 % (0-1.3); Lymphocytes % 34.9 % (15.3-44.8); MPV 8.9 fL (7.6-11.3)
[2020-01-04] MEDS ORDERED: KETOROLAC 30 MG/ML INJ ONE (20:52)
[2020-01-04] MEDS ORDERED: FENTANYL CITR 100 MCG/2 ML ONE (21:43)
[2020-01-04 22:03] LABS: Urine Blood NEGATIVE (NEG); Urine Glucose NEGATIVE (NEG); Urine Protein NEGATIVE (NEG); Urine pH 5.5 (5.0-7.0)
[2020-01-04 22:09] LABS: Albumin 3.8 g/dL (3.4-5.0); Bilirubin Direct 0.2 mg/dL (0-0.2); Bilirubin Total 0.7 mg/dL (0.2-1.0); Potassium 3.6 mmol/L (3.5-5.1); Protein, Total 7.1 g/dL (6.4-8.2)
--- NOTE | 2020-01-04 23:23 | ER ---
Nurse's Notes [facility] Name: Susan Madrigal Age: 39 yrs Sex: Female : 1980 Arrival Date: 01/04/2020 Time: 20:01 Bed 13 Private MD: Diagnosis: Constipation, unspecified Presentation: 01/04 20:20 Presenting complaint: Patient states: i have this sharp stabbing pain on the right side rr5 of my abdomen radiates to my chest started with constant dull ache yesterday. went to urgent care they advised me to go ER. 20:20 Transition of care: patient was not received from another setting of care. Onset of rr5 symptoms was January 03, 2020. Risk Assessment: Do you want to hurt yourself or someone else? Patient reports no desire to harm self or others. Initial Sepsis Screen: Does the patient meet any 2 criteria? No. Patient's initial sepsis screen is negative. Does the patient have a suspected source of infection? No. Patient's initial sepsis screen is negative. Care prior to arrival: Medication(s) given: tramadol. 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 - Coronavirus screen:: The patient has NOT traveled to [place] in the past 14 days. Proceed with normal triage process as indicated. - Social history:: Smoking status: Patient reports the use of cigarette tobacco products, smokes one-half pack cigarettes per day, Patient uses alcohol, but reports only rare drinking. Patient/guardian denies using street drugs. - Ebola Screening: : Patient negative for fever greater than or equal to 101.5 degrees Fahrenheit, and additional compatible Ebola Virus Disease symptoms Patient denies exposure to infectious person Patient denies travel to an Ebola-affected area in the 21 days before illness onset. Screenin:25 Abuse screen: Denies threats or abuse. Denies injuries from another. Nutritional rr5 screening: No deficits noted. Tuberculosis screening: No symptoms or risk factors identified. Fall Risk IV access (20 points). Total Quintanilla Fall Scale indicates No Risk (0-24 pts). Assessment: 20:20 General: Appears in no apparent distress. uncomfortable, Behavior is calm, cooperative, rr5 appropriate for age. 20:20 Pain: Complains of pain in right upper quadrant and left upper quadrant Pain radiates rr5 to chest Pain currently is 5 out of 10 on a pain scale. at worst was 8 out of 10 on a pain scale. Quality of pain is described as aching, dull, sharp, shooting, stabbing, Pain began 1 day ago. Is intermittent. Neuro: Level of Consciousness is awake, alert, obeys commands, Oriented to person, place, time, situation. Cardiovascular: Capillary refill < 3 seconds Patient's skin is warm and dry. Respiratory: Airway is patent Respiratory effort is even, unlabored, Respiratory pattern is regular, symmetrical. GI: Abdomen is round Bowel sounds present X 4 quads. Guarding noted in right upper quadrant and left upper quadrant Reports upper abdominal pain, Patient currently denies diarrhea, nausea, vomiting. : No signs and/or symptoms were reported regarding the genitourinary system. EENT: No signs and/or symptoms were reported regarding the EENT system. Derm: Skin is intact, is healthy with good turgor, Skin temperature is warm. Musculoskeletal: Circulation, motion, and sensation intact. Capillary refill < 3 seconds. 20:40 Reassessment: Patient appears in no apparent distress at this time. ultrasound at rr5 bedside. 21:30 Reassessment: Patient appears in no apparent distress at this time. ED provider aware rr5 with order made and carried out. Patient states symptoms have not improved. 22:15 Reassessment: Patient appears in no apparent distress at this time. Patient is alert, rr5 oriented x 3, equal unlabored respirations, skin warm/dry/pink. awaiting for CT result. Patient states feeling better. Patient states symptoms have improved. 23:00 Reassessment: Patient appears in no apparent distress at this time. Patient and/or rr5 family updated on plan of care and expected duration. Pain level reassessed. Patient is alert, oriented x 3, equal unlabored respirations, skin warm/dry/pink. 01/05 00:00 Reassessment: Patient appears in no apparent distress at this time. Patient is alert, rr5 oriented x 3, equal unlabored respirations, skin warm/dry/pink. discharge instruction given and explained without complaints made. Patient states feeling better. Patient states symptoms have improved. Vital Signs: 01/04 20:20 BP 126 / 108; Pulse 88; Resp 19; Temp 98.2; Pulse Ox 99% ; Weight 70.31 kg; Height 5 rr5 ft. 8 in. (172.72 cm); Pain 8/10; 21:30 BP 133 / 95; Pulse 85; Resp 16; Pulse Ox 99% ; Pain 9/10; rr5 22:14 BP 105 / 74; Pulse 79; Resp 19; Pulse Ox 98% ; Pain 5/10; rr5 23:00 BP 101 / 71; Pulse 70; Resp 17; Pulse Ox 98% ; Pain 5/10; rr5 01/05 00:00 BP 99 / 62; Pulse 75; Resp 17; Temp 98; Pulse Ox 99% ; Pain 3/10; rr5 01/04 20:20 Body Mass Index 23.57 (70.31 kg, 172.72 cm) rr5 ED Course: 01/04 20:01 Patient arrived in ED. cl3 20:19 Mohinder Hernandez MD is Attending Physician. tw4 20:20 Arm band placed on right wrist. rr5 20:20 Patient has correct armband on for positive identification. Placed in gown. Bed in low rr5 position. Call light in reach. Side rails up X2. Pulse ox on. NIBP on. 20:23 Ellis Campos, ANTONIO is Primary Nurse. rr5 20:30 No provider procedures requiring assistance completed. Inserted saline lock: 20 gauge rr5 in right antecubital area, using aseptic technique. Blood collected. 20:55 Triage completed. rr5 21:22 US Abdomen Limited In Process Unspecified. EDMS 22:15 CT Abd/Pelvis - IV Contrast Only In Process Unspecified. EDMS 01/05 00:00 IV discontinued, intact, bleeding controlled, No redness/swelling at site. Pressure rr5 dressing applied. Administered Medications: 01/04 20:31 Drug: Zofran 4 mg Route: IVP; Site: right antecubital; rr5 21:30 Follow up: Response: No adverse reaction rr5 20:33 Drug: TORadol 30 mg Route: IVP; Site: right antecubital; rr5 21:30 Follow up: Response: Pain is unchanged, physician notified rr5 21:30 Drug: fentaNYL (PF) 25 mcg {Note: rass 0.} Route: IVP; Site: right antecubital; rr5 22:30 Follow up: Response: No adverse reaction; Pain is decreased; RASS: Alert and Calm (0) rr5 Outcome: 23:23 Discharge ordered by . [email or web address] 01/05 00:10 Discharged to home ambulatory. rr5 00:10 Condition: stable rr5 00:10 Discharge instructions given to patient, Instructed on discharge instructions, follow up and referral plans. medication usage, Demonstrated understanding of instructions, follow-up care, medications, Prescriptions given X 2. 00:12 Patient left the ED. rr5 Signatures: Dispatcher [employer] Mohinder Caceres MD MD tw4 Ellis Campos, RN RN rr5 Nik Bhatt 3
--- NOTE | 2020-01-04 23:24 | EDPHYS ---
Physician Documentation [facility] Name: Susan Madrigal Age: 39 yrs Sex: Female : 1980 Arrival Date: 01/04/2020 Time: 20:01 Bed 13 Private MD: ED Physician Mohinder Hernandez HPI: 01/04 23:21 This 39 yrs old Female presents to ER via Ambulatory with complaints of tw4 Abdominal Pain. 23:21 The patient presents with abdominal pain in the right upper quadrant. Onset: The tw4 symptoms/episode began/occurred today. The symptoms do not radiate. 23:24 Associated signs and symptoms: none. The symptoms are described as achy, burning, tw4 constant. Modifying factors: The symptoms are alleviated by nothing, the symptoms are aggravated by nothing. The patient has not experienced similar symptoms in the past. 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 - Coronavirus screen:: The patient has NOT traveled to [place] in the past 14 days. Proceed with normal triage process as indicated. - Social history:: Smoking status: Patient reports the use of cigarette tobacco products, smokes one-half pack cigarettes per day, Patient uses alcohol, but reports only rare drinking. Patient/guardian denies using street drugs. - Ebola Screening: : Patient negative for fever greater than or equal to 101.5 degrees Fahrenheit, and additional compatible Ebola Virus Disease symptoms Patient denies exposure to infectious person Patient denies travel to an Ebola-affected area in the 21 days before illness onset. ROS: 23:24 Constitutional: Negative for fever, chills, and weight loss, Eyes: Negative for injury, tw4 pain, redness, and discharge, Cardiovascular: Negative for chest pain, palpitations, and edema, Respiratory: Negative for shortness of breath, cough, wheezing, and pleuritic chest pain, Back: Negative for injury and pain, MS/Extremity: Negative for injury and deformity, Skin: Negative for injury, rash, and discoloration, Neuro: Negative for headache, weakness, numbness, tingling, and seizure. 23:24 Abdomen/GI: Positive for abdominal pain, Negative for nausea and vomiting, nausea, vomiting, and diarrhea, nausea, vomiting, diarrhea, constipation, anorexia, dysphagia, hematemesis, black/tarry stool, rectal pain, rectal bleeding. Exam: 23:24 Constitutional: This is a well developed, well nourished patient who is awake, alert, tw4 and in no acute distress. Head/Face: Normocephalic, atraumatic. Eyes: Pupils equal round and reactive to light, extra-ocular motions intact. Lids and lashes normal. Conjunctiva and sclera are non-icteric and not injected. Cornea within normal limits. Periorbital areas with no swelling, redness, or edema. Chest/axilla: Normal chest wall appearance and motion. Nontender with no deformity. No lesions are appreciated. Cardiovascular: Regular rate and rhythm with a normal S1 and S2. No gallops, murmurs, or rubs. Normal PMI, no JVD. No pulse deficits. Respiratory: Lungs have equal breath sounds bilaterally, clear to auscultation and percussion. No rales, rhonchi or wheezes noted. No increased work of breathing, no retractions or nasal flaring. Skin: Warm, dry with normal turgor. Normal color with no rashes, no lesions, and no evidence of cellulitis. MS/ Extremity: Pulses equal, no cyanosis. Neurovascular intact. Full, normal range of motion. Neuro: Awake and alert, GCS 15, oriented to person, place, time, and situation. Cranial nerves II-XII grossly intact. Motor strength 5/5 in all extremities. Sensory grossly intact. Cerebellar exam normal. Normal gait. 23:24 Abdomen/GI: Inspection: abdomen appears normal, Bowel sounds: diminished, Palpation: moderate abdominal tenderness, in the right upper quadrant. Vital Signs: 20:20 BP 126 / 108; Pulse 88; Resp 19; Temp 98.2; Pulse Ox 99% ; Weight 70.31 kg; Height 5 rr5 ft. 8 in. (172.72 cm); Pain 8/10; 21:30 BP 133 / 95; Pulse 85; Resp 16; Pulse Ox 99% ; Pain 9/10; rr5 22:14 BP 105 / 74; Pulse 79; Resp 19; Pulse Ox 98% ; Pain 5/10; rr5 23:00 BP 101 / 71; Pulse 70; Resp 17; Pulse Ox 98% ; Pain 5/10; rr5 01/05 00:00 BP 99 / 62; Pulse 75; Resp 17; Temp 98; Pulse Ox 99% ; Pain 3/10; rr5 01/04 20:20 Body Mass Index 23.57 (70.31 kg, 172.72 cm) rr5 MDM: 01/04 20:19 Patient medically screened. tw4 23:21 Differential diagnosis: cholecystitis, Cholelithiasis, gastritis, pancreatitis, Peptic tw4 Ulcer Disease, Perf. Duodenal Ulcer, Perf. Gastric Ulcer. Data reviewed: vital signs, nurses notes. Counseling: I had a detailed discussion with the patient and/or guardian regarding: the historical points, exam findings, and any diagnostic results supporting the discharge/admit diagnosis. Medication response: morphine partially relieved the patient's pain, Toradol partially relieved the patient's pain. Response to treatment: and as a result, I will discharge patient. Special discussion: I discussed with the patient/guardian in detail that at this point there is no indication for admission to the hospital. It is understood, however, that if the symptoms persist or worsen the patient needs to return immediately for re-evaluation. 23:24 Data interpreted: Pulse oximetry: Interpretation: normal. Special discussion: Based on tw4 the patient's Hx, exam, and Dx evaluation, there is no indication for emergent surgery or inpatient Tx. It is understood by the patient/guardian that if the Sx's persist or worsen they need to return immediately for re-evaluation. 01/04 20:21 Order name: Basic Metabolic Panel; Complete Time: 23:17 tw4 01/04 23:17 Interpretation: Normal except: CL 109; GFR 77. tw4 01/04 20:21 Order name: CBC with Diff; Complete Time: 23:17 tw4 01/04 23:18 Interpretation: Within normal limits. tw01/04 20:21 Order name: Creatinine for Radiology; Complete Time: 23:17 tw4 01/04 23:18 Interpretation: Within normal limits: CRE 0.79. tw4 01/04 20:21 Order name: Hepatic Function; Complete Time: 23:17 4 01/04 23:18 Interpretation: Normal except: ALK 43; AST 14. 01/04 20:21 Order name: Lipase; Complete Time: 23:17 [facility] 01/04 23:18 Interpretation: Within normal limits: LIP 313. 01/04 20:46 Order name: Urine Dipstick--Ancillary (enter results); Complete Time: 23:17 [facility] 01/04 23:18 Interpretation: Within normal limits. 01/04 20:21 Order name: IV Saline Lock; Complete Time: 21:00 01/04 20:21 Order name: Labs collected and sent; Complete Time: 21:00 [facility] 01/04 20:44 Order name: US Abdomen Limited 01/04 20:46 Order name: Urine --Ancillary (enter results); Complete Time: 23:17 [facility] 01/04 21:37 Order name: CT Abd/Pelvis - IV Contrast Only 01/04 20:21 Order name: Urine Dipstick-Ancillary (obtain specimen); Complete Time: 20:43 [facility] 01/04 20:21 Order name: Urine Test (obtain specimen); Complete Time: 20:43 Administered Medications: 20:31 Drug: Zofran 4 mg Route: IVP; Site: right antecubital; rr5 21:30 Follow up: Response: No adverse reaction rr5 20:33 Drug: TORadol 30 mg Route: IVP; Site: right antecubital; rr5 21:30 Follow up: Response: Pain is unchanged, physician notified rr5 21:30 Drug: fentaNYL (PF) 25 mcg {Note: rass 0.} Route: IVP; Site: right antecubital; rr5 22:30 Follow up: Response: No adverse reaction; Pain is decreased; RASS: Alert and Calm (0) rr5 Disposition: 01/04/20 23:23 Discharged to Home. Impression: Constipation, unspecified. - Condition is Stable. - Discharge Instructions: Constipation, Adult. - Prescriptions for Colace 100 mg Oral Tablet - take 1 tablet by ORAL route every 12 hours; 14 tablet. Miralax 17 gram/dose Oral - take 1 packet by ORAL route once daily dilute powder in 8 ounces of water or juice; 1 packet. - Medication Reconciliation Form, Thank You Letter, Antibiotic Education, Prescription Opioid Use form. - Follow up: Private Physician; When: Upon discharge from the Emergency Department; Reason: If symptoms return, Recheck today's complaints, Continuance of care. - Problem is new. - Symptoms have improved. Signatures: Dispatcher [employer] Mohinder Caceres MD MD tw4 Ellis Campos RN RN rr5 Corrections: (The following items were deleted from the chart) 01/05 00:12 01/04 23:23 01/04/2020 23:23 Discharged to Home. Impression: Constipation, unspecified. rr5 Condition is Stable. Forms are Medication Reconciliation Form, Thank You Letter, Antibiotic Education, Prescription Opioid Use. Follow up: Private Physician; When: Upon discharge from the Emergency Department; Reason: If symptoms return, Recheck today's complaints, Continuance of care. Problem is new. Symptoms have improved. tw4
[2020-01-05 01:09] VITALS: TEMP 98.2
[2020-01-05 01:19] VITALS: BP 105/74; O2SAT 98
--- NOTE | 2020-01-05 09:12 | RAD REPORT ---
EXAM DESCRIPTION: US - Abdomen Exam Limited - 01/04/2020 9:22 pm CLINICAL HISTORY: The patient is 39 years old and is Female; ABD PAIN TECHNIQUE: Axial computed tomography images of the abdomen and pelvis with intravenous contrast. S agittal and coronal reformatted images were created and reviewed. This CT exam was performed using one or more of the following dose reduction techniques: automated exposure control, adjustment of t he mA and/or kV according to patient size, and/or use of iterative reconstruction technique. DLP: 1024 mGy*cm COMPARISON: CT abdomen and pelvis with contrast dated January 06, 2019. FINDINGS: LUNG BASES: Lung bases are clear. HEART: Visualized heart is normal. ABDOMEN: LIVER: Subcentimeter left hepatic hypodensity, likely cyst. GALLBLADDER AND BILE DUCTS: Unremarkable. No calcified stones. No ductal dilation. PANCREAS: Unremarkable. No mass. No ductal dilation. SPLEEN: Unremarkable. No splenomegaly. ADRENALS: Unremarkable. No mass. KIDNEYS AND URETERS: Unchanged left renal cyst measuring 1.1 cm. No hydronephrosis. STOMACH AND BOWEL: Mild to moderate stool burden. Improved prominence of small bowel loops in the left upper abdomen. No obstruction. No mucosal thickening. PELVIS: APPENDIX: Right lower quadrant postsurgical changes. BLADDER: Unremarkable. No mass. REPRODUCTIVE: Truncated appearance of the uterus, likely postsurgical. ABDOMEN and PELVIS: INTRAPERITONEAL SPACE: Unremarkable. No free air. No significant fluid collection. BONES/JOINTS: No acute fracture. No dislocation. SOFT TISSUES: Unremarkable. VASCULATURE: Unremarkable. No abdominal aortic aneurysm. LYMPH NODES: Unremarkable. No enlarged lymph nodes. IMPRESSION: 1. No acute abdominal or pelvic abnormality. Improved prominence of small bowel loops in the left upper abdomen. 2. Mild to moderate stool burden. Correlate for constipation. Electronically signed by: Bear Paredes DO 01/04/2020 10:35 PM TRANSIT BUS OPERATOR Due to temporary technical issues with the PACS/Fluency reporting system, reports are being signed by the in house radiologist as a courtesy to ensure prompt reporting. The interpreting radiologist is emerald alemanly responsible for the content of the report.
--- NOTE | 2020-01-05 09:24 | RAD REPORT ---
EXAM DESCRIPTION: CT - Abdomen Pelvis W Contrast - 01/05/2020 6:52 am CLINICAL HISTORY: The patient is 39 years old and is Female; ABD PAIN TECHNIQUE: Axial computed tomography images of the abdomen and pelvis with intravenous contrast. S agittal and coronal reformatted images were created and reviewed. This CT exam was performed using one or more of the following dose reduction techniques: automated exposure control, adjustment of t he mA and/or kV according to patient size, and/or use of iterative reconstruction technique. DLP: 1024 mGy*cm COMPARISON: CT abdomen and pelvis with contrast dated January 06, 2019. FINDINGS: LUNG BASES: Lung bases are clear. HEART: Visualized heart is normal. ABDOMEN: LIVER: Subcentimeter left hepatic hypodensity, likely cyst. GALLBLADDER AND BILE DUCTS: Unremarkable. No calcified stones. No ductal dilation. PANCREAS: Unremarkable. No mass. No ductal dilation. SPLEEN: Unremarkable. No splenomegaly. ADRENALS: Unremarkable. No mass. KIDNEYS AND URETERS: Unchanged left renal cyst measuring 1.1 cm. No hydronephrosis. STOMACH AND BOWEL: Mild to moderate stool burden. Improved prominence of small bowel loops in the left upper abdomen. No obstruction. No mucosal thickening. PELVIS: APPENDIX: Right lower quadrant postsurgical changes. BLADDER: Unremarkable. No mass. REPRODUCTIVE: Truncated appearance of the uterus, likely postsurgical. ABDOMEN and PELVIS: INTRAPERITONEAL SPACE: Unremarkable. No free air. No significant fluid collection. BONES/JOINTS: No acute fracture. No dislocation. SOFT TISSUES: Unremarkable. VASCULATURE: Unremarkable. No abdominal aortic aneurysm. LYMPH NODES: Unremarkable. No enlarged lymph nodes. IMPRESSION: 1. No acute abdominal or pelvic abnormality. Improved prominence of small bowel loops in the left upper abdomen. 2. Mild to moderate stool burden. Correlate for constipation. Electronically signed by: Bear Paredes DO 01/04/2020 10:35 PM BULK PICKER Due to temporary technical issues with the PACS/Fluency reporting system, reports are being signed by the in house radiologist as a courtesy to ensure prompt reporting. The interpreting radiologist is emerald alemanly responsible for the content of the report.
== END 2020-01-05 00:12 | disposition home or self-care (01) ==
LOC: ER 19:59
DX: K59.00 Constipation, unspecified (principal)
CPT/HCPCS: 85025; 80048; 36415; 81025; 80076; 81003; 83690; 74177; 76705; 96375; 96374; 99284; Q9967; J3010; J2405

== ENCOUNTER 2020-05-01 06:34 | Emergency (ER) | payer OTHER ==
--- OUTSIDE RECORDS SUMMARY | 2020-05-01 06:36 | XMS REPORT | Continuity of Care Document ---
:1980 Author Organization [facility] t Address [address] [place] [address] Care Team Providers Name Role Phone Nurse, Urgent Care Attending Clinician Unavailable Doctor Unassigned, Name Attending Clinician Unavailable Amauri PALACIOS Attending Clinician Problems This patient has no known problems. Allergies, Adverse Reactions, Alerts This patient has no known allergies or adverse reactions. Medications This patient has no known medications. Procedures This patient has no known procedures. Encounters Start End Encounter Admission Attending Care Care Encounter Source Date/Time Date/Time Type Type Clinicians Facility Department ID 2020-01-04 2020-01-04 Nurse NurseRobert [id number] 19:32:45 19:33:23 Visit Urgent Care [facility] [id number] Surgical [id number] [facility] [id number] Mary Pereira 2020-01-04 2020-01-04 Orders Doctor BOYD [id number] 00:00:00 00:00:00 Only UnassignedKARLI [id number] [place] [id number] 2019-07-18 2019-07-18 Emergency MIKE Baugh [id number] 14:59:08 19:20:00 Naty Pereira [id number] [place] [id number] [place] [id number] 2019-07-18 2019-07-18 Orders Doctor BOYD [id number] 00:00:00 00:00:00 Only Unassigned, KARLI [id number] [place] [facility] [id number] Results This patient has no known results.
[2020-05-01] MEDS ORDERED: ONDANSETRON 4 MG/2 ML VIAL ONE (07:01)
[2020-05-01] MEDS ORDERED: MORPHINE 2 MG/ML SYR ONE ×2 (07:01→07:50)
[2020-05-01 07:04] LABS: Absolute Lymphocytes (CBC) 2.1 K/uL (0.7-4.9); Basophils % 0.5 % (0-1.3); Lymphocytes % 36.2 % (15.3-44.8); MPV 9.7 fL (7.6-11.3); RBC Red Blood Cell Count 3.96 M/uL (3.86-4.86)
[2020-05-01 07:11] LABS: Potassium 3.2 mmol/L (3.5-5.1)
[2020-05-01] MEDS ORDERED: FENTANYL CITR 100 MCG/2 ML ONE (07:55)
[2020-05-01] MEDS ORDERED: DIAZEPAM 10 MG/2 ML INJ SYRINGE ONE (08:27)
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
[2020-05-01] MEDS ORDERED: KETOROLAC 30 MG/ML INJ ONE (09:48)
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
[2020-05-01 10:18] VITALS: TEMP 97.8
[2020-05-01 10:19] VITALS: O2SAT 99
[2020-05-01 10:21] VITALS: BP 113/76
== END 2020-05-01 10:11 | disposition home or self-care (01) ==
LOC: ER 06:34
DX: S13.8XXA Sprain of joints and ligaments of other parts of neck, initial encounter (principal); S29.012A Strain of muscle and tendon of back wall of thorax, initial encounter; Y08.02XA Assault by strike by baseball bat, initial encounter; Y93.9 Activity, unspecified; Y92.9 Unspecified place or not applicable; F41.9 Anxiety disorder, unspecified; F17.210 Nicotine dependence, cigarettes, uncomplicated
CPT/HCPCS: 85025; 80048; 36415; 86900; 86850; 86901; 70450; 72125; 71260; 74177; Q9967; J3360; J3010; J2270 ×2; J2405; 99285

== ENCOUNTER 2021-04-28 16:33 | Observation (INO) | payer OTHER ==
--- NOTE | 2021-04-28 17:05 | RAD REPORT ---
EXAM DESCRIPTION: RAD - Chest Single View - 04/28/2021 5:01 pm CLINICAL HISTORY: CHEST PAIN Chest pain. COMPARISON: Chest Pa And Lat (2 Views) dated 05/11/2017; CHEST SINGLE VIEW dated 01/16/2013 FINDINGS: Portable technique limits examination quality. The lungs are grossly clear. The heart is normal in size. No displaced fractures. IMPRESSION: No acute intrathoracic process suspected.
[2021-04-28 17:19] LABS: Protime INR 1.03
[2021-04-28 17:27] LABS: Basophils % 0.8 % (0-1.3); Hematocrit 40.7 % (36.0-45.0); Lymphocytes % 29.5 % (15.3-44.8); MPV 9.6 fL (7.6-11.3); RBC Red Blood Cell Count 4.52 M/uL (3.86-4.86)
--- NOTE | 2021-04-28 17:33 | RAD REPORT ---
EXAM DESCRIPTION: CT - Head Brain Wo Cont - 04/28/2021 5:26 pm CLINICAL HISTORY: DIZZINESS Headache, drowsiness COMPARISON: HEAD BRAIN W O CONTRAST dated 01/16/2013; HEAD BRAIN W O CONTRAST dated 10/25/2012 TECHNIQUE: All CT scans are performed using dose optimization technique as appropriate and may inclu de automated exposure control or mA/KV adjustment according to patient size. FINDINGS: No intracranial hemorrhage, hydrocephalus or extra-axial fluid collection.No areas of brai n edema or evidence of midline shift. The paranasal sinuses and mastoids are essentially clear. The calvarium is intact. IMPRESSION: No acute intracranial abnormality.
[2021-04-28 17:34] LABS: BUN Blood Urea Nitrogen 13 mg/dL (7-18); Bicarbonate 23 mmol/L (21-32); Glucose Level 82 mg/dL (74-106); Magnesium 2.2 mg/dL (1.8-2.4); NT PRO-BNP 121 pg/mL (<125); Potassium 3.9 mmol/L (3.5-5.1); Sodium Level 139 mmol/L (136-145); Troponin (Emerg Dept Use Only) < 0.02 ng/mL (0.0-0.045)
[2021-04-28] MEDS ORDERED: MEPERIDINE HCL 25 MG/ML SYR ONE (18:33)
[2021-04-28] MEDS ORDERED: NA CHLORIDE 0.9% 1,000 ML ONE ×2 (18:34→21:11)
[2021-04-28] MEDS ORDERED: KETOROLAC 30 MG/ML INJ ONE (18:34)
--- NOTE | 2021-04-28 19:11 | RAD REPORT ---
EXAM DESCRIPTION: CT - Head angio - 04/28/2021 6:53 pm CLINICAL HISTORY: Headache;Dizziness Headache, drowsiness COMPARISON: Head Brain Wo Cont dated 04/28/2021; HEAD BRAIN W O CONTRAST dated 01/16/2013 TECHNIQUE: CT angiography of the head was performed with MIPs. All CT scans are performed using dose optimization technique as appropriate and may include automated exposure control or mA/KV adjustment according to patient size. FINDINGS: No evidence of aneurysm is detected. No flow-limiting stenosis or vascular malformation id entified. Antegrade flow is seen in the vertebral arteries. The vertebral arteries are codominant. The visualized dural venous sinuses are patent. IMPRESSION: No significant flow abnormality is detected.
--- NOTE | 2021-04-28 19:13 | RAD REPORT ---
EXAM DESCRIPTION: CT - Neck Angio - 04/28/2021 6:54 pm CLINICAL HISTORY: dizziness;Headache Headache, drowsiness COMPARISON: CT HEAD CSPINE MPR WO CONTRAST dated 12/30/2012 TECHNIQUE: CT angiography of the neck vessels was performed with MIPs. All CT scans are performed using dose optimization technique as appropriate and may include automated exposure control or mA/KV adjustment according to patient size. FINDINGS: A left aortic arch is identified with normal three vessel configuration of the great vesse ls. No significant flow abnormality is seen of the common carotid bilaterally. No significant stenosis is identified involving the cervical segments of both internal carotid arteri es. Normal flow is seen within both vertebral arteries. IMPRESSION: No significant flow abnormality of the neck vessels is identified.
[2021-04-28] MEDS ORDERED: DIAZEPAM 2 MG TABLET ONE (19:18)
--- NOTE | 2021-04-28 20:50 | EDPHYS ---
Physician Documentation [facility] Name: Susan Madrigal Age: 41 yrs Sex: Female : 1980 Arrival Date: 04/28/2021 Time: 16:34 Bed 24 Private MD: Severiano Lyons E ED Physician Sharan Abdullahi HPI: 04/28 16:49 This 41 yrs old Female presents to ER via Unassigned with complaints of Chest rn Pain, Dizziness, Nausea. 16:49 The patient presents with dizziness, lightheadedness, vertigo. Onset: The rn symptoms/episode began/occurred 1 hour(s) ago. Modifying factors: The symptoms are alleviated by holding head still, lying down, the symptoms are aggravated by movement of head, standing up, changing position. Associated signs and symptoms: Pertinent positives: chest pain, palpitations, Pertinent negatives: abdominal pain, diaphoresis, focal weakness, head injury, headache, seizure, syncope, vomiting. Severity of symptoms: At their worst the symptoms were moderate in the emergency department the symptoms have improved. The patient has not experienced similar symptoms in the past. The patient has not recently seen a physician. Reports moving, thought was drinking enough water but feels dizziness, like everything spinning, generalized lightheadedness, no syncope. + sharp chest pains that are intermittent. No sob. No abd pain. No hx of heart problems or brain problems. . Historical: - Allergies: 16:48 No Known Allergies; ll1 - PMHx: 16:48 Anxiety; endomitriosis; ibs; lymphatic collitis; Lupus; ll1 - PSHx: 16:48 Appendectomy; Partial hysterectomy; uterine ablation; ll1 - Immunization history:: Client reports having NOT received the Covid vaccine. Flu vaccine is not up to date. - Social history:: Smoking status: Patient reports the use of cigarette tobacco products, smokes one-half pack cigarettes per day. - Family history:: not pertinent. - Hospitalizations: : No recent hospitalization is reported. ROS: 16:49 Constitutional: Negative for fever, chills, and weight loss, Eyes: Negative for injury, rn pain, redness, and discharge, ENT: Negative for injury, pain, and discharge, Neck: Negative for injury, pain, and swelling, Cardiovascular: Negative for edema Respiratory: Negative for shortness of breath, cough, wheezing, and pleuritic chest pain, Abdomen/GI: Negative for abdominal pain, vomiting, diarrhea, and constipation, Back: Negative for injury and pain, MS/Extremity: Negative for injury and deformity, Skin: Negative for injury, rash, and discoloration, Neuro: Negative for numbness, tingling, and seizure. Exam: 16:49 Constitutional: This is a well developed, well nourished patient who is awake, alert, rn Appears anxious, doesn't want to turn head during exam. Head/Face: Normocephalic, atraumatic. Eyes: Pupils equal round and reactive to light, extra-ocular motions intact. Periorbital areas with no swelling, redness, or edema. ENT: Very dry MM Cardiovascular: Tachycardic, regular. No pulse deficits. Respiratory: No increased work of breathing, no retractions or nasal flaring. Abdomen/GI: soft, non-tender Skin: Warm, dry MS/ Extremity: Pulses equal, no cyanosis. Neuro: Awake and alert, GCS 15, oriented to person, place, time, and situation. Cranial nerves II-XII grossly intact. Motor strength 5/5 in all extremities. Sensory grossly intact. Cerebellar exam normal. Vital Signs: 16:48 BP 126 / 94; Pulse 106; Resp 17; Temp 98.2; Pulse Ox 99% ; Weight 81.65 kg; Height 5 ll1 ft. 9 in. (175.26 cm); Pain 6/10; 18:02 BP 104 / 77; Pulse 72; Resp 17; Pulse Ox 100% ; bp 18:30 BP 116 / 67; Pulse 77; Resp 16; Pulse Ox 100% ; rb3 21:43 BP 125 / 70; Pulse 79; Resp 19; Pulse Ox 99% ; rr5 22:55 BP 95 / 56; Pulse 82; Resp 16; Pulse Ox 100% on R/A; dh4 23:26 BP 93 / 56; Pulse 78; Resp 15; Pulse Ox 100% on R/A; dh4 04/29 00:39 BP 99 / 58; Pulse 83; Resp 14 S; Temp 98(O); Pulse Ox 98% ; Pain 5/10; bb 04/28 16:48 Body Mass Index 26.58 (81.65 kg, 175.26 cm) ll1 MDM: 04/28 16:37 Patient medically screened. rn 20:45 Differential diagnosis: hypovolemia, idiopathic dizziness, near-syncope, vertigo. Data ma2 reviewed: vital signs, nurses notes. Counseling: I had a detailed discussion with the patient and/or guardian regarding: the historical points, exam findings, and any diagnostic results supporting the discharge/admit diagnosis, the presence of at least one elevated blood pressure reading (>120/80) during this emergency department visit. Response to treatment: the patient's symptoms have markedly improved after treatment. ED course: headache is graual patient still feels dizzy and vertiginous, cta is unremarkable. patient does not need emergent lp as risk outweigh benefit, patient was initially seen by dr. abdullahi and his recommendation agrees with no indication for emergent LP. i discussed with dr. romero and he recommends mri in the morning and he will see her. will admit for intractable vertigo . 04/28 16:47 Order name: Magnesium; Complete Time: 17:37 04/28 16:47 Order name: Basic Metabolic Panel; Complete Time: 17:37 04/28 16:47 Order name: CBC with Diff; Complete Time: 17:37 rn 04/28 16:47 Order name: NT PRO-BNP; Complete Time: 17:37 rn 04/28 16:47 Order name: PT-INR; Complete Time: 17:37 rn 04/28 16:47 Order name: Troponin (emerg Dept Use Only); Complete Time: 17:37 rn 04/28 16:47 Order name: XRAY Chest (1 view); Complete Time: 17:37 rn 04/28 16:47 Order name: CT Head Brain wo Cont; Complete Time: 17:37 rn 04/28 18:27 Order name: CT Head Angio; Complete Time: 19:55 rn 04/28 18:27 Order name: CT Neck Angio; Complete Time: 19:55 rn 04/28 20:45 Order name: MRI - Brain W/Wo Cont ma2 04/28 21:00 Order name: COVID-19 : Document "Date of Symptom Onset" if Symptomatic. rr5 04/28 23:36 Order name: SARS-COV-2 RT PCR EDMS 04/28 16:47 Order name: EKG; Complete Time: 16:47 rn 04/28 16:47 Order name: Cardiac monitoring; Complete Time: 16:49 rn 04/28 16:47 Order name: EKG - Nurse/Tech; Complete Time: 16:55 rn 04/28 16:47 Order name: IV Saline Lock; Complete Time: 16:56 rn 04/28 16:47 Order name: Labs collected and sent; Complete Time: 16:56 rn 04/28 16:47 Order name: O2 Per Protocol; Complete Time: 16:48 rn 04/28 16:47 Order name: O2 Sat Monitoring; Complete Time: 16:48 rn Administered Medications: 17:03 Drug: NS 0.9% 1000 ml Route: IV; Rate: 1000 ml; Site: right antecubital; rb3 18:00 Follow up: IV Status: Completed infusion; IV Intake: 1000ml bb 17:03 Drug: Meclizine 50 mg Route: PO; rb3 18:06 Follow up: Response: No adverse reaction bp 18:00 Drug: Demerol (meperidine) 25 mg Route: IVP; Site: right antecubital; bp 18:15 Follow up: Response: No adverse reaction; Pain is decreased rb3 18:00 Drug: NS 0.9% 1000 ml Route: IV; Rate: 1000 ml; Site: right antecubital; bp 19:00 Follow up: IV Status: Completed infusion; IV Intake: 1000ml bb 18:00 Drug: TORadol - (ketorolac) 15 mg Route: IVP; Site: right antecubital; bp 18:15 Follow up: Response: No adverse reaction; Pain is decreased rb3 19:02 Drug: Valium (diazepam) 2 mg Route: PO; rb3 20:00 Follow up: Response: No adverse reaction bb 20:56 Drug: NS 0.9% 1000 ml Route: IV; Rate: 1 bolus; Site: right antecubital; rr5 22:00 Follow up: IV Status: Completed infusion; IV Intake: 1000ml bb 20:57 Drug: Reglan (metoCLOPramide) 20 mg Route: IVP; Site: right antecubital; rr5 22:30 Follow up: Response: No adverse reaction bb 21:00 Drug: Meclizine 25 mg Route: PO; rr5 22:30 Follow up: Response: No adverse reaction bb 21:42 Drug: morphine 4 mg {Note: rocky 0.} Route: IVP; Site: right antecubital; rr5 22:30 Follow up: Response: No adverse reaction; Pain is decreased bb Disposition: 04/28/21 20:49 Hospitalization ordered by Fabiano Ramirez for Observation. Preliminary diagnosis is Dizziness and giddiness. - Bed requested for Telemetry/MedSurg (observation). - Status is Observation. bb - Condition is Stable. - Problem is new. - Symptoms are unchanged. Signatures: Dispatcher [employer] EDMS Luz Maria Roman, RN RN bb Sharan Abdullahi MD MD rn Garcia, Cindy, RN RN cg Peltier, Brian, RN RN bp Alzahri, Mohammad, MD MD ma2 Roque, Raymond, RN RN rr5 Yanely Bhatt RN RN ll1 Radha Vinson, RN RN rb3 Corrections: (The following items were deleted from the chart) 16:53 16:49 Constitutional: This is a well developed, well nourished patient who is awake, rn alert, Appears anxious, doesn't want to turn head during exam. rn 23:57 20:49 Hospitalization Ordered by Fabiano Ramirez MD for Observation. Preliminary cg diagnosis is Dizziness and giddiness. Bed requested for Telemetry/MedSurg (observation). Status is Observation. Condition is Stable. Problem is new. Symptoms are unchanged. ma2 04/29 01:48 04/28 23:57 04/28/2021 20:49 Hospitalization Ordered by Fabiano Ramirez MD for bb Observation. Preliminary diagnosis is Dizziness and giddiness. Bed requested for Telemetry/MedSurg (observation). Status is Observation. Condition is Stable. Problem is new. Symptoms are unchanged. cg
--- NOTE | 2021-04-28 20:50 | ER ---
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 No cough or fever. Coronavirus screen: Client denies travel out of the [place] in the last 14 days. At this time, the client does not indicate any symptoms associated with coronavirus-19. Ebola Screen: Patient denies travel to an Ebola-affected area in the 21 days before illness onset. Initial Sepsis Screen: Does the patient meet any 2 criteria? HR > 90 bpm. No. Patient's initial sepsis screen is negative. Does the patient have a suspected source of infection? No. Patient's initial sepsis screen is negative. Risk Assessment: Do you want to hurt yourself or someone else? Patient reports no desire to harm self or others. Onset of symptoms was April 28, 2021. 16:48 Method Of Arrival: Wheelchair ll1 16:48 Acuity: JHOAN 3 ll1 Triage Assessment: 23:20 General: Appears in no apparent distress. General: Behavior is calm, cooperative. bb Historical: - Allergies: 16:48 No Known Allergies; ll1 - PMHx: 16:48 Anxiety; endomitriosis; ibs; lymphatic collitis; Lupus; ll1 - PSHx: 16:48 Appendectomy; Partial hysterectomy; uterine ablation; ll1 - Immunization history:: Client reports having NOT received the Covid vaccine. Flu vaccine is not up to date. - Social history:: Smoking status: Patient reports the use of cigarette tobacco products, smokes one-half pack cigarettes per day. - Family history:: not pertinent. - Hospitalizations: : No recent hospitalization is reported. Screenin:57 Abuse screen: Denies threats or abuse. Denies injuries from another. Nutritional bp screening: No deficits noted. Tuberculosis screening: No symptoms or risk factors identified. Fall Risk None identified. Assessment: 17:07 Reassessment: Pt. requested pain medicine for a headache. Dr. Abdullahi notified. No new rb3 order received at this time. He wants to wait for test results and the NS bolus to infuse at this time. 18:02 Reassessment: Patient appears in no apparent distress at this time. No changes from bp previously documented assessment. Patient and/or family updated on plan of care and expected duration. Pain level reassessed. PT RETURNED FROM RAD. Cardiovascular: Rhythm is sinus rhythm. 18:48 Reassessment: Pt. went to CT. rb3 19:02 Reassessment: Patient appears in no apparent distress at this time. Patient and/or rb3 family updated on plan of care and expected duration. Pain level reassessed. Patient is alert, oriented x 3, equal unlabored respirations, skin warm/dry/pink. 19:40 General: Appears in no apparent distress. uncomfortable, Behavior is calm, cooperative, rr5 appropriate for age. Pain: Complains of pain in head Pain Quality of pain is described as aching, Pain began gradually. Neuro: Level of Consciousness is awake, alert, obeys commands, Oriented to person, place, time, Reports dizziness, headache. Cardiovascular: Capillary refill < 3 seconds Patient's skin is warm and dry. Respiratory: Airway is patent Respiratory effort is even, unlabored, Respiratory pattern is regular, symmetrical. GI: Reports nausea. 20:30 Reassessment: Patient appears in no apparent distress at this time. Patient is alert, rr5 oriented x 3, equal unlabored respirations, skin warm/dry/pink. 21:40 Reassessment: Patient appears in no apparent distress at this time. Patient is alert, rr5 oriented x 3, equal unlabored respirations, skin warm/dry/pink. complaints of headache, ED Provider aware with order made and carried out. 22:30 Reassessment: pt appears to be sleeping, eyes closed, resp unlabored, IV site intact, bb patent, pt assisted to bathroom via wheelchair, awaiting room assignment for admission. Reassessment: pt appears to be sleeping, eyes closed, resp unlabored, awaiting COVID results for room assignment. 04/29 00:38 Reassessment: Patient and/or family updated on plan of care and expected duration. Pain bb level reassessed. Patient is alert, oriented x 3, equal unlabored respirations, skin warm/dry/pink. IV site intact with no erythema or edema noted, family at bedside report called for room 206. Vital Signs: 04/28 16:48 BP 126 / 94; Pulse 106; Resp 17; Temp 98.2; Pulse Ox 99% ; Weight 81.65 kg; Height 5 ll1 ft. 9 in. (175.26 cm); Pain 6/10; 18:02 BP 104 / 77; Pulse 72; Resp 17; Pulse Ox 100% ; bp 18:30 BP 116 / 67; Pulse 77; Resp 16; Pulse Ox 100% ; rb3 21:43 BP 125 / 70; Pulse 79; Resp 19; Pulse Ox 99% ; rr5 22:55 BP 95 / 56; Pulse 82; Resp 16; Pulse Ox 100% on R/A; dh4 23:26 BP 93 / 56; Pulse 78; Resp 15; Pulse Ox 100% on R/A; dh4 04/29 00:39 BP 99 / 58; Pulse 83; Resp 14 S; Temp 98(O); Pulse Ox 98% ; Pain 5/10; bb 04/28 16:48 Body Mass Index 26.58 (81.65 kg, 175.26 cm) ll1 ED Course: 04/28 16:34 Patient arrived in ED. am2 16:34 Severiano Lyons MD is Private Physician. am2 16:37 Sharan Abdullahi MD is Attending Physician. rn 16:46 Lloyd Santoyo, ANTONIO is Primary Nurse. bp 16:46 Arm band placed on Patient placed in an exam room, on a stretcher. ll1 16:49 Triage completed. ll1 16:56 Patient has correct armband on for positive identification. Placed in gown. Bed in low 5 position. Call light in reach. Side rails up X 1. Warm blanket given. outgoing inspector on. Pulse ox on. NIBP on. 16:57 Inserted saline lock: 20 gauge in right antecubital area, using aseptic technique. bp Blood collected. 16:57 Initial lab(s) drawn, by ED staff, sent to lab. EKG done, by ED staff, reviewed by [facility] Sharan Abdullahi MD. 17:01 XRAY Chest (1 view) In Process Unspecified. EDMS 17:26 CT Head Brain wo Cont In Process Unspecified. EDMS 18:53 CT Head Angio In Process Unspecified. EDMS 18:54 CT Neck Angio In Process Unspecified. EDMS 19:21 Primary Nurse role handed off by Lloyd Santoyo, ANTONIO eb 20:47 Ellis Campos, ANTONIO is Primary Nurse. rr5 20:49 Fabiano Ramirez MD is Hospitalizing Provider. ma2 04/29 00:47 No provider procedures requiring assistance completed. Patient admitted, IV remains in bb place. Patient maintains SpO2 saturation greater than 95% on room air. Administered Medications: 04/28 17:03 Drug: NS 0.9% 1000 ml Route: IV; Rate: 1000 ml; Site: right antecubital; rb3 18:00 Follow up: IV Status: Completed infusion; IV Intake: 1000ml bb 17:03 Drug: Meclizine 50 mg Route: PO; rb3 18:06 Follow up: Response: No adverse reaction bp 18:00 Drug: Demerol (meperidine) 25 mg Route: IVP; Site: right antecubital; bp 18:15 Follow up: Response: No adverse reaction; Pain is decreased rb3 18:00 Drug: NS 0.9% 1000 ml Route: IV; Rate: 1000 ml; Site: right antecubital; bp 19:00 Follow up: IV Status: Completed infusion; IV Intake: 1000ml bb 18:00 Drug: TORadol - (ketorolac) 15 mg Route: IVP; Site: right antecubital; bp 18:15 Follow up: Response: No adverse reaction; Pain is decreased rb3 19:02 Drug: Valium (diazepam) 2 mg Route: PO; rb3 20:00 Follow up: Response: No adverse reaction bb 20:56 Drug: NS 0.9% 1000 ml Route: IV; Rate: 1 bolus; Site: right antecubital; rr5 22:00 Follow up: IV Status: Completed infusion; IV Intake: 1000ml bb 20:57 Drug: Reglan (metoCLOPramide) 20 mg Route: IVP; Site: right antecubital; rr5 22:30 Follow up: Response: No adverse reaction bb 21:00 Drug: Meclizine 25 mg Route: PO; rr5 22:30 Follow up: Response: No adverse reaction bb 21:42 Drug: morphine 4 mg {Note: rocky 0.} Route: IVP; Site: right antecubital; rr5 22:30 Follow up: Response: No adverse reaction; Pain is decreased bb Intake: 18:00 IV: 1000ml; Total: 1000ml. bb 19:00 IV: 1000ml; Total: 2000ml. bb 22:00 IV: 1000ml; Total: 3000ml. bb Outcome: 20:49 Decision to Hospitalize by Provider. ma2 23:21 Instructed on the need for admit. bb 04/29 00:47 Admitted to Tele accompanied by nurse, family with patient, via wheelchair, room 206, bb with chart, Report called to Aminata ALVAREZ Condition: stable 01:48 Patient left the ED. bb Signatures: Dispatcher [employer] EDMS Luz Maria Roman RN RN bb Sharan Abdullahi MD MD rn Martinez, Maria Kimberly Armstrong Lloyd Richards RN RN Fabiano Menendez MD MD ma2 Marissa Ng Raymond RN RN rr5 Mamadou Patiño formerly [facility] Yanely Bhatt RN RN 1 Radha Vinson RN RN rb3 Corrections: (The following items were deleted from the chart) 04/28 18:55 18:48 Reassessment: Pt. went to US. rb3 rb3
[2021-04-28] MEDS ORDERED: METOCLOPRAMIDE 10 MG/2mL INJ ONE ×2 (21:11→21:13)
[2021-04-28] MEDS ORDERED: MECLIZINE HCL 12.5 MG TAB ONE (21:16)
[2021-04-28] MEDS ORDERED: MORPHINE 4 MG/ML SYR ONE (21:58)
--- NOTE | 2021-04-28 22:14 | P.HP ---
Certification for Inpatient Patient admitted to: Observation With expected LOS: <2 Midnights Patient will require the following post-hospital care: None Practitioner: I am a practitioner with admitting privileges, knowledge of patient current condition, hospital course, and medical plan of care. Services: Services provided to patient in accordance with Admission requirements found in Title 42 Section 412.3 of the Code of Federal Regulations <Geovany Meza - Last Filed: 04/28/21 22:10> Patient admitted to: Observation With expected LOS: <2 Midnights <Fabiano Ramirez - Last Filed: 04/29/21 17:03> Patient History Date of Service: 04/28/21 Primary Care Provider: Dr. webber Reason for admission: Dizziness, chest pain History of Present Illness: 41-year-old female with history of lupus, lymphocytic colitis presents emergency department for dizziness/chest pain. Patient reports that she was moving some items to storage unit when she began having a headache and significant dizziness ensued after developed pressure-like chest pain radiating to the right arm. Patient reports dizziness has persisted, patient was evaluated in the emergency department, labs were unremarkable, CT head without contrast, CTA head and neck, chest x-ray, initial EKG and troponin levels were all unremarkable. Patient still dizzy after receiving meclizine, IV fluids, patient reports that she is dizzy even at rest without head movement although her dizziness is exacerbated by EOMs and movement of the head. ED prior discuss case with neurology who recommended observation overnight and MRI in the morning. - Past Medical/Surgical History -: Lupus -: Lymphocytic colitis -: Appendectomy -: Partial hysterectomy -: Uterine ablation Psychosocial/ Personal History: Patient is unemployed, lives with family - Family History Mother -: Diabetes Father -: Heart disease, Cancer Brother -: Cancer - Social History Smoking Status: Never smoker Alcohol use: Yes CD- Drugs: No Caffeine use: No Place of Residence: Home <Geovany Meza - Last Filed: 04/28/21 22:10> Date of Service: 04/29/21 <Fabiano Ramirez - Last Filed: 04/29/21 17:03> Home Medications: ALPRAZolam [Xanax*] 0.5 mg PO BID PRN 04/29/21 Bupropion HCl [Wellbutrin Sr] 100 mg PO DAILY 04/29/21 Cefdinir [Omnicef] 300 mg PO BID #10 capsule 04/29/21 Escitalopram Oxalate [Lexapro] 5 mg PO DAILY 04/29/21 Gabapentin 300 mg PO BID 04/29/21 Meclizine HCl 25 mg PO Q8HP #30 tablet 04/29/21 Tramadol HCl [Ultram] 50 mg PO TID 04/29/21 predniSONE [Deltasone] 20 mg PO BID #10 tab 04/29/21 Review of Systems 10-point ROS is otherwise unremarkable Cardiovascular: Chest Pain, Light Headedness Neurological: Other (Dizziness), As per HPI <Geovany Meza - Last Filed: 04/28/21 22:10> Physical Examination - Physical Exam General: Alert, In no apparent distress, Oriented x3 HEENT: Atraumatic, PERRLA, Mucous membr. moist/pink, EOMI, Sclerae nonicteric Neck: Supple, 2+ carotid pulse no bruit, No LAD, Without JVD or thyroid abnormality Respiratory: Clear to auscultation bilaterally, Normal air movement Cardiovascular: Regular rate/rhythm, Normal S1 S2 Gastrointestinal: Normal bowel sounds, No tenderness Musculoskeletal: No tenderness Integumentary: No rashes Neurological: Normal gait, Normal speech, Normal strength at 5/5 x4 extr, Normal tone, Sensation intact, Cranial nerves 3-12 intact, Normal affect - Studies Laboratory Data (last 24 hrs) 04/28/21 17:00: PT 11.8, INR 1.03 04/28/21 17:00: WBC 6.80, Hgb 13.4, Hct 40.7, Plt Count 313 04/28/21 17:00: Sodium 139, Potassium 3.9, BUN 13, Creatinine 1.27, Glucose 82, Magnesium 2.2 <Geovany Meza - Last Filed: 04/28/21 22:10> - Studies Laboratory Data (last 24 hrs) 04/28/21 17:00: PT 11.8, INR 1.03 04/28/21 17:00: WBC 6.80, Hgb 13.4, Hct 40.7, Plt Count 313 04/28/21 17:00: Sodium 139, Potassium 3.9, BUN 13, Creatinine 1.27, Glucose 82, Magnesium 2.2 <Fabiano Ramirez - Last Filed: 04/29/21 17:03> Assessment and Plan - Plan Assessment Headache, dizziness Chest pain rule out ACS History of lupus Plan Headache, dizziness: Patient reports she has had a headache for about 3 days, has tried abortive therapy prescribed by her PCP without much improvement. Patient with significant mild dizziness that is persistent even at rest. Patient had CT head brain with/without contrast and an EKG which were negative. Case discussed with Neurology, will obtain MRI stroke protocol, echocardiogram and provide medications p.r.n. for dizziness and headache. DVT prophylaxis is Lovenox 40 mg subcutaneous once daily. Chest pain rule out ACS: Monitor on telemetry, trend troponins, echocardiogram ordered. Cardiology consult as necessary. History of lupus: Continue medications as appropriate Discharge Plan: Home Plan to discharge in: 24 Hours - Advance Directives Does patient have a Living Will: No Does patient have a Durable POA for Healthcare: No - Code Status/Comfort Care Code Status Assessed: Yes (Full code) Critical Care: No Time Spent Managing Pts Care (In Minutes): 55 <Geovany Meza - Last Filed: 04/28/21 22:10> Date of Service: 04/29/21 Agree with plan of care as mentioned above. Awaiting neurology workup. <Fabiano Ramirez - Last Filed: 04/29/21 17:03>
[2021-04-29] MEDS ORDERED: ONDANSETRON 4 MG/2 ML VIAL IV PRN (00:56)
[2021-04-29] MEDS ORDERED: TRAMADOL HCL 50 MG TAB PO PRN (00:56)
[2021-04-29] MEDS ORDERED: MECLIZINE HCL 12.5 MG TAB PO PRN (00:56)
[2021-04-29] MEDS ORDERED: ACETAMINOPHEN 500 MG TAB PO PRN (00:56)
[2021-04-29] MEDS ORDERED: MEPERIDINE HCL 25 MG/ML SYR IV PRN (00:56)
[2021-04-29] MEDS: HYDROCODONE/APAP 7.5/325 MG TAB PO PRN ×2 (01:54→10:36)
[2021-04-29 02:22] VITALS: BMI 28.8
[2021-04-29 02:45] VITALS: O2SAT 98
[2021-04-29 05:52] LABS: Absolute Lymphocytes (CBC) 1.7 K/uL (0.7-4.9); Hematocrit 35.7 % (36.0-45.0); Lymphocytes % 32.2 % (15.3-44.8); MPV 9.5 fL (7.6-11.3); RBC Red Blood Cell Count 3.98 M/uL (3.86-4.86)
[2021-04-29 06:06] LABS: Albumin 3.1 g/dL (3.4-5.0); Bilirubin Total 0.3 mg/dL (0.2-1.0); Potassium 3.9 mmol/L (3.5-5.1); Thyroid Stimulating Hormone 1.36 uIU/mL (0.360-3.740)
[2021-04-29] MEDS ORDERED: KCL 20 MEQ/100 mL IVPB 20 MEQ/100 ML BAG IV SCH (07:00)
[2021-04-29] MEDS ORDERED: POTASSIUM CL SA 10 MEQ TAB PO ONE (08:00)
[2021-04-29] MEDS ORDERED: ENOXAPARIN 40 MG/0.4 ML SQ SCH (09:00)
--- NOTE | 2021-04-29 09:30 | RAD REPORT ---
EXAM DESCRIPTION: MRI - Brain W/Wo Cont - 04/29/2021 8:34 am CLINICAL HISTORY: HEADACHE Headache, drowsiness COMPARISON: MRA Head Wo Cont dated 04/29/2021 TECHNIQUE: Multi-sequence, multiplanar MR imaging of the brain was performed with contrast. FINDINGS: No intracranial hemorrhage, hydrocephalus, or extra-axial fluid collection. No edema or sh ift of midline structures. No intracranial mass. DWI is negative for acute CVA. The midline structures are normally formed. Mastoid air cells and paranasal sinuses are clear. Post-contrast images show no abnormal enhancement to suggest tumor or infection. IMPRESSION: No acute or concerning intracranial abnormalities. No pathologic post-contrast enhancement suspected.
--- NOTE | 2021-04-29 09:31 | RAD REPORT ---
EXAM DESCRIPTION: MRI - MRA Head Wo Cont - 04/29/2021 7:52 am CLINICAL HISTORY: persistent HARPER/dizziness CVA COMPARISON: Chest Single View dated 08/06/2019; Chest Single View dated 05/02/2018; Chest Single View dated 06/09/2017; Chest Pa And Lat (2 Views) dated 12/29/2016Head angio dated 04/28/2021 FINDINGS: 3D noncontrast [id number] MR angiography of the [place] was performed. No aneurysm, flow-limiting stenosis or vascular malformation is seen. Forward flow seen in codominant vertebral arteries. The visualized dural venous sinuses appear patent. IMPRESSION: No significant flow abnormality of the [place] is identified.
--- NOTE | 2021-04-29 09:37 | RAD REPORT ---
EXAM DESCRIPTION: MRI - MRA Neck W/Wo Cont - 04/29/2021 8:33 am CLINICAL HISTORY: headache, chest pain, dizziness COMPARISON: No comparisons FINDINGS: Contrast enhance 2D [id number] MR angiography of the neck vessels was performed. A left aortic arch is noted with normal great vessel origin pattern. Both common carotid arteries and subclavian arteries are widely patent. No significant flow abnormali ty is seen of either internal carotid artery. Antegrade flow is seen in codominant vertebral arteries . IMPRESSION: No significant flow abnormality of the neck vessels identified.
[2021-04-29 16:10] LABS: Urine Appearance CLEAR (Clear); Urine Bilirubin NEGATIVE (Negative); Urine Blood NEGATIVE (Negative); Urine Color YELLOW (Yellow); Urine Glucose NEGATIVE (Negative); Urine Protein NEGATIVE (Negative); Urine Specific Gravity >=1.030 (1.005-1.030); Urine Urobilinogen 0.2 mg/dL (0.2-1.0)
[2021-04-29 16:14] LABS: Urine Microscopic Reflex NO UMIC
[2021-04-29] MEDS ORDERED: ALPRAZOLAM 0.5 MG TABLET PO PRN (16:29)
[2021-04-29 16:48] VITALS: BP 110/65; TEMP 97.8
[2021-04-29] MEDS ORDERED: ACETAMIN/CAFFEINE/BUTALB TAB PO ONE (17:00)
[2021-04-29] MEDS ORDERED: HYDROCORTISONE SUC 100 MG INJ IV ONE (17:00)
[2021-04-29] MEDS ORDERED: WATER FOR INJ,STERILE 10 ML IV SCH (17:00)
[2021-04-29] MEDS ORDERED: CEFTRIAXONE/SWI 1gm 1 GM/10 ML SYR IVP ONE (17:00)
--- NOTE | 2021-04-29 17:04 | P.DS ---
Discharge Date: 04/29/21 Primary Care Provider: Dr. webber Disposition: ROUTINE DISCHARGE Discharge Condition: GOOD Reason for Admission: Dizziness, chest pain Brief History of Present Illness: Patient is a 41-year-old female with history of lupus, lymphocytic colitis presents emergency department for dizziness/chest pain. Patient reports that she was moving some items to storage unit when she began having a headache and significant dizziness ensued after developed pressure-like chest pain radiating to the right arm. Patient reports dizziness has persisted, patient was evaluated in the emergency department, labs were unremarkable, CT head without contrast, CTA head and neck, chest x-ray, initial EKG and troponin levels were all unremarkable. Patient still dizzy after receiving meclizine, IV fluids, patient reports that she is dizzy even at rest without head movement although her dizziness is exacerbated by EOMs and movement of the head. ED prior discuss case with neurology who recommended observation overnight and MRI in the morning. Vital Signs/Physical Exam: Temp Pulse Resp BP Pulse Ox 97.8 F 77 16 110/65 98 04/29/21 16:48 04/29/21 16:00 04/29/21 16:50 04/29/21 16:00 04/29/21 16:50 Laboratory Data at Discharge: WBC 5.30 K/uL (4.3-10.9) D 04/29/21 05:23 Hgb 12.0 g/dL (12.0-15.0) 04/29/21 05:23 Hct 35.7 % (36.0-45.0) L 04/29/21 05:23 Plt Count 244 K/uL (152-406) D 04/29/21 05:23 PT 11.8 SECONDS (9.5-12.5) 04/28/21 17:00 INR 1.03 04/28/21 17:00 Sodium Cancelled 04/29/21 Unknown Potassium Cancelled 04/29/21 Unknown BUN Cancelled 04/29/21 Unknown Creatinine Cancelled 04/29/21 Unknown Glucose Cancelled 04/29/21 Unknown Magnesium 2.2 mg/dL (1.8-2.4) 04/28/21 17:00 Total Bilirubin 0.3 mg/dL (0.2-1.0) 04/29/21 05:23 AST 14 U/L (15-37) L 04/29/21 05:23 ALT 14 U/L (12-78) 04/29/21 05:23 Alkaline Phosphatase 52 U/L (45-117) 04/29/21 05:23 Troponin I < 0.02 ng/mL (0.0-0.045) 04/29/21 05:23 Triglycerides 48 mg/dL (<150) 04/29/21 05:23 Cholesterol 143 mg/dL (<200) 04/29/21 05:23 HDL Cholesterol 53 mg/dL (40-60) 04/29/21 05:23 Cholesterol/HDL Ratio 2.70 04/29/21 05:23 Home Medications: ALPRAZolam [Xanax*] 0.5 mg PO BID PRN 04/29/21 Bupropion HCl [Wellbutrin Sr] 100 mg PO DAILY 04/29/21 Cefdinir [Omnicef] 300 mg PO BID #10 capsule 04/29/21 Escitalopram Oxalate [Lexapro] 5 mg PO DAILY 04/29/21 Gabapentin 300 mg PO BID 04/29/21 Meclizine HCl 25 mg PO Q8HP #30 tablet 04/29/21 Tramadol HCl [Ultram] 50 mg PO TID 04/29/21 predniSONE [Deltasone] 20 mg PO BID #10 tab 04/29/21 New Medications: Meclizine HCl 25 mg PO Q8HP #30 tablet Cefdinir [Omnicef] 300 mg PO BID #10 capsule predniSONE [Deltasone] 20 mg PO BID #10 tab Physician Discharge Instructions: OK TO DC IV AND DC HOME FOLLOW-UP WITH PRIMARY CARE PROVIDER IN 1-2 WEEKS FOLLOW-UP WITH NEUROLOGY IN 1-2 WEEKS RETURN TO THE ER IF symptoms worsen CALL or TEXT DR. MCMILLAN AT [phone] IF ANY QUESTIONS REGARDING HOSPITAL STAY. PLEASE CALL THE FLOOR AT [phone] IF ANY MEDICATION OR NURSING QUESTIONS. Diet: AHA Activity: Fall precautions Followup: Paramjit Barcenas PA [Primary Care Provider] -
[2021-04-29] MEDS ORDERED: TRAMADOL HCL 50 MG TAB PO SCH (21:00)
[2021-04-29] MEDS ORDERED: GABAPENTIN 300 MG CAP PO SCH (21:00)
[2021-04-30] MEDS ORDERED: Escitalopram Oxalate [Lexapro] 5 MG Tablet PO SCH (09:00)
[2021-04-30] MEDS ORDERED: BUPROPION HCL 100 MG PO SCH (09:00)
--- NOTE | 2021-04-30 09:36 | ECHO ---
HEIGHT: 5 ft 9 in WEIGHT: 195 lb 4.8 oz DATE OF STUDY: 04/29/[address]: Geovany Meza NP 2-DIMENSIONAL: YES M.MODE: YES DOPPLER: YES COLOR FLOW: YES TDS: NO PORTABLE: NO DEFINITY: NO BUBBLE STUDY: NO DIAGNOSIS: DIZZINESS, CHEST PAIN CARDIAC HISTORY: CATHERIZATION: NO SURGERY: NO PROSTHETIC VALVE: NO PACEMAKER: NO MEASUREMENTS (cm) DIASTOLIC (NORMALS) SYSTOLIC (NORMALS) IVSd 0.9 (0.6-1.2) LA Diam 1.8 (1.9-4.0) LVEF 55-60% LVIDd 4.3 (3.5-5.7) LVIDs 2.7 (2.0-3.5) %FS 37% LVPWd 1.0 (0.6-1.2) Ao Diam 2.6 (2.0-3.7) 2 DIMENSIONAL ASSESSMENT: RIGHT ATRIUM: NORMAL LEFT ATRIUM: NORMAL RIGHT VENTRICLE: NORMAL LEFT VENTRICLE: NORMAL TRICUSPID VALVE: NORMAL MITRAL VALVE: NORMAL PULMONIC VALVE: NORMAL AORTIC VALVE: NORMAL PERICARDIAL EFFUSION: NONE AORTIC ROOT: NORMAL LEFT VENTRICULAR WALL MOTION: NORMAL DOPPLER/COLOR FLOW: MILD TRICUSPID REGURGITATION. COMMENTS: NORMAL LEFT VENTRICULAR EJECTION FRACTION 55-60%. NORMAL WALL MOTION. MILD TRICUSPID REGURGITATION. TECHNOLOGIST: Melissa ONEILL
== END 2021-04-29 18:43 | disposition home or self-care (01) ==
LOC: ER 16:33 → ERHOLD 21:13 → 2ND 04-29 00:49
PROVIDERS: ADMIT Hospitalist; ATTEND Hospitalist
DX: R42 Dizziness and giddiness (principal); R07.9 Chest pain, unspecified; M32.9 Systemic lupus erythematosus, unspecified; K52.832 Lymphocytic colitis; Z20.822 Contact with and (suspected) exposure to COVID-19
CPT/HCPCS: 36415; 70450; 70496; 70498; 70544; 70549; 70553; 71045; 80048; 80053; 80061; 81003; 83735; 83880; 84439; 84443; 84484; 85025; 85610; 93005; 93306; 96361; 96374; 96375; 97161; 99285; A9577; G0378; J0696; J1650; J1720; J2175; J2765; J7030; Q9967; U0003

== ENCOUNTER 2022-12-25 13:29 | Emergency (ER) | payer OTHER ==
--- OUTSIDE RECORDS SUMMARY | 2022-12-25 13:34 | XMS REPORT | Continuity of Care Document ---
:1980 Author Organization [facility] Address [address] [place] [address] Dr. Alcazar [address] [place] [id number] Care Team Providers Name Role Phone ISABEL PATEL Primary Care Physician Unavailable CHARLES PAGE Attending Clinician Unavailable Charles Oscar Attending Clinician Carlos A Howe MD Attending Clinician Doctor Unassigned, [place] Attending Clinician Unavailable federico Attending Clinician Unavailable [facility] Attending Clinician Unavailable Unknown, Attending Attending Clinician Unavailable Joselin Pham Attending Clinician WAN COLES Attending Clinician Unavailable OLIVIA SANTOS Attending Clinician Unavailable JOSHUA HERNANDEZ Attending Clinician Unavailable ABDIFATAH JHAVERI Attending Clinician Unavailable JOHNSON SMITH Attending Clinician Unavailable CASH SWANSON Attending Clinician Unavailable INES VILLARREAL Attending Clinician Unavailable ADEN CARABALLO Attending Clinician Unavailable DAVION ESTRADA Attending Clinician Unavailable RAMBO CARLIN Attending Clinician Unavailable LINSEY PACK Attending Clinician Unavailable PRISCILLA CARLSON Attending Clinician Unavailable ORA WIN Attending Clinician Unavailable CHARLES PAGE Admitting Clinician Unavailable federico Admitting Clinician Unavailable INES VILLARREAL Admitting Clinician Unavailable PRISCILLA CARLSON Admitting Clinician Unavailable Payers Payer Name Policy Type Policy Number Effective Date Expiration Date Magalie STEPHENS [facility] [id number] 2019 00:00:00 [facility] [id number] 2021 00:00:00 [facility] [id number] 2012 [facility] 00:00:00 REG[facility] Problems Condition Condition Condition Status Onset Resolution Last Treating Co mments Source Name Details Category Date Date Treatment Clinician Date No known No known Disease Unive rs active active ity of problems problems [facility] Allergies, Adverse Reactions, Alerts Allergy Allergy Status Severity Reaction(s) Onset Inactive Treating Comm ents Source Name Type Date Date Clinician NO KNOWN Drug Active Univers ALLERGIE Class ity of S [facility] Social History Social Habit Start Date Stop Date Quantity Comments Source Exposure to Not sure [facility] SARS-CoV-2 (event) Medica l [place] Tobacco use and 2020-01-04 2020-01-04 Never used [facility] exposure 00:00:00 00:00:[address] [facility] Sex Assigned At [birth year] [facility] 00:00:00 00:00:[address] [facility] Smoking Status Start Date Stop Date Source Never smoker [facility] Unknown if ever smoked [facility] Medications Ordered Filled Start Stop Current Ordering Indication Dosage Frequency Signature Comments Components Source Medication Medication Date Date Medication? Clinician (SIG) Name Name iopamidol 2021- No [id number] 100mL 100 mL, Univers (ISOVUE 02-04 Intravenou ity o f 370-500 mL) 23:15: 21:54 s, ONCE, 1 [place] injection 00 :00 dose, On Medica l 100 mL [facility] 02/04/22 at 1815, Routine ondansetron 2021- No 4mg 4 mg, Slow Univers (ZOFRAN 02-04 IV Push, ity of (PF)) 21:45: 21:12 ONCE, 1 [place] injection 4 00 :00 dose, On Medi mónica mg [facility] 02/04/22 at 1645, BELEN NaCl 0.9% 2021- No 1000mL at 999 Uni vers (NS) bolus 02-0422 mL/hr, ity of infusion 21:45: 22:32 1,000 mL, [place] as 1,000 mL 00 :00 IV Medical Infusion, Branch ONCE, 1 dose, On 02/04/22 at 1645, STAT hydrOXYchlo 0 Yes 200mg Take 200 U nivers roQUINE 3-22 mg by ity of (PLAQUENIL) 17:40: mouth 2 [place] as 200 mg 26 (two) Medical tablet times Branch daily. pregabalin Yes Take by [facility] ers (LYRICA 3-22 mouth. ity of ORAL) 17:40: [place] 26 Medical Branch gabapentin 2021-0 2021- No 300mg Take 300 U nivers 300 mg 3-22 03-22 mg by ity of capsule 17:39: 00:00 mouth 2 [place] 07 :00 (two) Medical times Branch daily. sucralfate 0 Yes [id number] 1g Take 1 U nivers 1 gram 3-22 tablet by ity of tablet 00:00: mouth [place] 00 before Medical meals and Branch at bedtime. omeprazole Yes [id number] 20mg Take 1 U nivers 20 mg 3-22 capsule by ity of capsule 00:00: mouth [place] 00 daily. Medical Branch FENTanyl PF 2020- No 100ug 100 mcg, Univers (SUBLIMAZE 03-27 Slow IV ity o f (PF)) 06:00: 05:30 Push, [place] injection 00 :00 ONCE, 1 Medical 100 mcg dose, [facility] 03/27/21 at 0100, Routine proMETHazin 2020- No 12.5mg 12.5 mg, Univers e 03-27 IV ity of (PHENERGAN) 05:15: 05:30 [place], [place] 12.5 mg in 00 :00 ONCE, 1 Medica l NaCl 0.9% dose, [facility] h (NS) 50 mL 03/27/21 at piggyback 0015, 50 mL metoclopram 2020- No 10mg 10 mg, Uni vers gris HCl 03-27 Slow IV ity of (REGLAN) 04:15: 03:29 Push, [place] injection 00 :00 ONCE, 1 Medical 10 mg dose, [facility] Branch 03/26/21 at 2315, BELEN diphenhydrA 2020- No 25mg 25 mg, Uni vers MINE 03-27 Slow IV ity of (BENADRYL) 04:15: 03:29 Push, [place] injection 00 :00 ONCE, 1 Medical 25 mg dose, Tue Branch 03/26/21 at 2315, STAT ketorolac 2020- No 30mg 30 mg, Unive rs (TORADOL) 12 05-12 Slow IV ity of injection 04:15: 03:29 Push, [place] 30 mg 00 :00 ONCE, 1 Medical dose, [facility] Branch 03/26/21 at 2315, BELEN
Fa culty member approving Restricted medication : CARLOS A HOWE NaCl 0.9% 2020- No 1000mL at 999 Uni vers (NS) bolus 03-27 05-12 mL/hr, ity of infusion 04:15: 06:16 1,000 mL, [place] as 1,000 mL 00 :00 IV Medical Infusion, Branch ONCE, 1 dose, [facility] 03/26/21 at 2315, STAT Butalbital- Yes [id number] 1{capsu Take 1 Univers Acetaminoph 5-12 le} capsule by it y of en-Caff 00:00: mouth [place] (FIORICET) 00 every 6 Medica l 50-300-40 (six) Branch mg per hours as capsule needed for Pain (scale 4-6). metoclopram Yes [id number] 10mg Take 1 Univers gris HCl 10 5-12 tablet by ity of mg tablet 00:00: mouth [place] 00 every 6 Medical (six) Branch hours. Butalbital- 2021- No [id number] 1{capsu Take 1 Univers Acetaminoph 5-12 03-22 le} capsule by i ty of en-Caff 00:00: 00:00 mouth [place] (FIORICET) 00 :00 every 6 Medica l 50-300-40 (six) Branch mg per hours as capsule needed for Pain (scale 4-6). metoclopram 2021- No [id number] 10mg Take 1 Univers gris HCl 10 5-12 -22 tablet by ity of mg tablet 00:00: 00:00 mouth [place] 00 :00 every 6 Medical (six) Branch hours. furosemide 2019-11- No 40mg 40 mg, IV U nivers (LASIX) 0-26 10-26 Push, ity of injection 21:15: 20:14 ONCE, 1 [place] 40 mg 00 :00 dose, [facility] Medical 09/10/20 Branch at 1615, BELEN escitalopra 2019- Yes 10mg Take 10 mg Univers m oxalate 0-26 by mouth ity of 10 mg 20:23: daily. [place] tablet 25 Medical Branch buPROPion 2019-11 Yes 100mg Take 100 Uni vers 100 mg 0-26 mg by ity of tablet 20:23: mouth [place] 25 daily. Medical Branch gabapentin 2019-11 Yes 300mg Take 300 Un anna 300 mg 0-26 mg by ity of capsule 20:23: mouth 2 [place] 25 (two) Medical times Branch daily. ALPRAZolam 2019-11 Yes .5mg Take 0.5 Uni vers 0.5 mg 0-26 mg by ity of tablet 20:23: mouth 2 [place] 25 (two) Medical times Branch daily. escitalopra 2019-11 Yes 10mg Take 10 mg Univers m oxalate 0-26 by mouth ity of 10 mg 20:23: daily. [place] tablet 25 Medical Branch buPROPion 2019-11 Yes 100mg Take 100 Uni vers 100 mg 0-26 mg by ity of tablet 20:23: mouth [place] 25 daily. Medical Branch gabapentin 2019-11 Yes 300mg Take 300 Un anna 300 mg 0-26 mg by ity of capsule 20:23: mouth 2 [place] 25 (two) Medical times Branch daily. ALPRAZolam 2019-11 Yes .5mg Take 0.5 Uni vers 0.5 mg 0-26 mg by ity of tablet 20:23: mouth 2 [place] 25 (two) Medical times Branch daily. escitalopra 2019-11 Yes 10mg Take 10 mg Univers m oxalate 0-26 by mouth ity of 10 mg 20:23: daily. [place] tablet 25 Medical Branch buPROPion 2019-11 Yes 100mg Take 100 Uni vers 100 mg 0-26 mg by ity of tablet 20:23: mouth [place] 25 daily. Medical Branch gabapentin 2019-11 Yes 300mg Take 300 Un anna 300 mg 0-26 mg by ity of capsule 20:23: mouth 2 [place] 25 (two) Medical times Branch daily. ALPRAZolam 2019-11 Yes .5mg Take 0.5 Uni vers 0.5 mg 0-26 mg by ity of tablet 20:23: mouth 2 [place] 25 (two) Medical times Branch daily. ibuprofen 2019-11 Yes 800mg Take 800 Uni vers 800 mg 0-26 mg by ity of tablet 18:20: mouth [place] 02 every 6 Medical (six) Branch hours as needed for Pain (scale 1-3) or Pain (scale 4-6). traMADOL 50 2019-11 Yes 50mg Take 50 mg Univers mg tablet 0-26 by mouth 3 ity of 18:20: (three) [place] 02 times Medical daily. Branch ibuprofen 2019-11 Yes 800mg Take 800 Uni vers 800 mg 0-26 mg by ity of tablet 18:20: mouth [place] 02 every 6 Medical (six) Branch hours as needed for Pain (scale 1-3) or Pain (scale 4-6). traMADOL 50 2019-11 Yes 50mg Take 50 mg Univers mg tablet 0-26 by mouth 3 ity of 18:20: (three) [place] 02 times Medical daily. Branch ibuprofen 2019-11 Yes 800mg Take 800 Uni vers 800 mg 0-26 mg by ity of tablet 18:20: mouth [place] 02 every 6 Medical (six) Branch hours as needed for Pain (scale 1-3) or Pain (scale 4-6). traMADOL 50 2019-11 Yes 50mg Take 50 mg Univers mg tablet 0-26 by mouth 3 ity of 18:20: (three) [place] 02 times Medical daily. Branch escitalopra 2019-11 Yes 10mg Take 10 mg Univers m oxalate 0-26 by mouth ity of 10 mg 15:23: daily. [place] tablet 25 Medical Branch buPROPion 2019-11 Yes 100mg Take 100 Uni vers 100 mg 0-26 mg by ity of tablet 15:23: mouth [place] 25 daily. Medical Branch ALPRAZolam 2019-11 Yes .5mg Take 0.5 Uni vers 0.5 mg 0-26 mg by ity of tablet 15:23: mouth 2 [place] 25 (two) Medical times Branch daily. ibuprofen 2019-11 Yes 800mg Take 800 Uni vers 800 mg 0-26 mg by ity of tablet 13:20: mouth [place] 02 every 6 Medical (six) Branch hours as needed for Pain (scale 1-3) or Pain (scale 4-6). traMADOL 50 2019-11 Yes 50mg Take 50 mg Univers mg tablet 0-26 by mouth 3 ity of 13:20: (three) [place] 02 times Medical daily. Branch furosemide 2019-11 Yes [id number] 20mg Take 1 Univers 20 mg 0-26 tablet by ity of tablet 00:00: mouth [place] 00 every Medical morning. [place] furosemide 2019-11 Yes [id number] 20mg Take 1 Univers 20 mg 0-26 tablet by ity of tablet 00:00: mouth [place] 00 every Medical morning. [place] furosemide 2019-11 Yes [id number] 20mg Take 1 Univers 20 mg 0-26 tablet by ity of tablet 00:00: mouth [place] 00 every Medical morning. [place] furosemide 2019-11- No [id number] 20mg Take 1 Univers 20 mg 0-26 03-22 tablet by ity of tablet 00:00: 00:00 mouth [place] 00 :00 every Medical morning. [place] ceFAZolin 2018- No 1000mg 1,000 mg, Univers (ANCEF) 07-19 IV ity of 1,000 mg in 00:30: 00:03 [place], [place] NaCl 0.9% 00 :00 ONCE, 1 Medical (NS) 50 mL dose, [facility] ch MINI-BAG 07/18/19 at 1930, 50 mL
Reas on for Anti-Infec tive: Documented Infection< br>Documen jerald Infection Site: Urine
D uration of Therapy: 7 days dicyclomine 2018- No 20mg 20 mg, Uni vers (BENTYL) 07-18 Oral, ity of capsule 20 23:30: 22:53 ONCE, 1 [place] as mg 00 :00 dose, [facility] 07/18/19 at Branch 1830, Routine FENTanyl PF 2018- No 50ug 50 mcg, Un anna (SUBLIMAZE 07-18 Slow IV ity o f (PF)) 23:30: 22:51 Push, [place] injection 00 :00 ONCE, 1 Medical 50 mcg dose, [facility] 07/18/19 at 1830, STAT ketorolac 2018- No 30mg 30 mg, Unive rs (TORADOL) 07-18 Slow IV ity of injection 23:30: 22:48 Push, [place] 30 mg 00 :00 ONCE, 1 Medical dose, [facility] 07/18/19 at 1830, BELEN
Fa culty member approving Restricted medication : JOSELIN DAVIDSON 2019- No 1000mL at 999 [facility] ers ringers IV 07-18 mL/hr, ity of infusion 23:00: 23:47 1,000 mL, [place] as 1,000 mL 00 :00 IV Medical Infusion, [place] ONCE, 1 dose, [facility] 07/18/19 at 1800, BELEN iohexol 2019- No 120mL 120 mL, Unive rs (OMNIPAQUE 07-18 Intravenou it y of 350 22:00: 21:45 s, ONCE, 1 [place] BULK-150 00 :00 dose, Mon Medica l mL) 07/18/19 at [place] injection 1700, 120 mL Routine maalox:diph 2018- No 15mL 15 mL, Uni vers enhydrAMINE 07-18 Oral, ity of :lidocaine2 21:15: 21:15 ONCE, 1 [place] %viscous 00 :00 dose, Mon Medica l 1:1:1: 07/18/19 at [place] suspension 1615, (COMPOUNDED Routine ) famotidine 2018- No 20mg 20 mg, [facility] ers (PEPCID 07-18 Slow IV ity of (PF)) 21:15: 20:31 Push, [place] injection 00 :00 ONCE, 1 Medical 20 mg dose, [facility] 07/18/19 at 1615, BELEN morpHINE 2018- No 4mg 4 mg, Slow Un anna injection 4 07-18 IV Push, ity of mg 21:15: 20:30 ONCE, 1 [place] 00 :00 dose, [facility] Medical 07/18/19 at [place] 1615, STAT proMETHazin 2018- No 12.5mg 12.5 mg, Univers e 07-18 IV ity of (PHENERGAN) 21:15: 21[facility] [place] 12.5 mg in 00 :00 ONCE, 1 Medica l NaCl 0.9% dose, [facility] Branc h (NS) 50 mL 07/18/19 at piggyback 1615, 50 mL acetaminoph 2018- No 650mg 650 mg, U nivers en 07-18 Oral, ity of (TYLENOL) 21:15: 20:31 ONCE, 1 [place] tablet 650 00 :00 dose, Mon Medi mónica mg 07/18/19 at Branch 1615, BELEN NaCl 0.9% 2018- 2019- No 1000mL at 999 Uni vers (NS) bolus 07-18 09-02 mL/hr, ity of infusion 21:15: 22:10 1,000 mL, [place] as 1,000 mL 00 :00 IV Medical Infusion, Branch ONCE, 1 dose, 07/18/19 at 1615, STAT proMETHazin 2018- Yes [id number] 12.5mg Take 0.5 Univers e 25 mg 9-02 tablets by ity of tablet 00:00: mouth [place] 00 every 6 Medical (six) Branch hours as needed for Nausea and Vomiting (N/V). dicyclomine 2018- Yes [id number] 20mg Take 1 U nivers (BENTYL) 20 9-02 tablet by ity of mg tablet 00:00: mouth 4 00 (four) Medical times Branch daily as needed for Abdominal pain. proMETHazin 2019- Yes [id number] 12.5mg Take 0.5 Univers e 25 mg 9-02 tablets by ity of tablet 00:00: mouth [place] 00 every 6 Medical (six) Branch hours as needed for Nausea and Vomiting (N/V). dicyclomine 2018- Yes [id number] 20mg Take 1 U nivers (BENTYL) 20 9-02 tablet by ity of mg tablet 00:00: mouth 4 [place] 00 (four) Medical times Branch daily as needed for Abdominal pain. proMETHazin 2019-0 Yes [id number] 12.5mg Take 0.5 Univers e 25 mg 9-02 tablets by ity of tablet 00:00: mouth [place] 00 every 6 Medical (six) Branch hours as needed for Nausea and Vomiting (N/V). dicyclomine 2018- Yes [id number] 20mg Take 1 U nivers (BENTYL) 20 9-02 tablet by ity of mg tablet 00:00: mouth [place] 00 (four) Medical times Branch daily as needed for Abdominal pain. dicyclomine 2019-0 2020- No [id number] 20mg Take 1 Univers (BENTYL) 20 9-02 10-26 tablet by it y of mg tablet 00:00: 00:00 mouth 4 [place] 00 :00 (four) Medical times Branch daily as needed for Abdominal pain. proMETHazin 2019-0 2020- No [id number] 12.5mg Take 0.5 Univers e 25 mg 07-18 10-26 tablets by ity o f tablet 00:00: 00:00 mouth [place] 00 :00 every 6 Medical (six) Branch hours as needed for Nausea and Vomiting (N/V). cephALEXin 2019- No [id number] 500mg Take 1 Univers 500 mg 07-18 09-10 capsule by ity of capsule 00:00: 04:59 mouth 2 [place] 00 :00 (two) Medical times Branch daily for 7 days. ondansetron Yes [id number] 4mg Take 1 Univers (ZOFRAN) 4 6-09 tablet by ity of mg tablet 00:00: mouth [place] 00 every 8 Medical (eight) Branch hours as needed for Nausea and Vomiting (N/V) for up to 10 doses. acetaminoph Yes [id number] 1{tbl} Take 1 Univers en-codeine 6-09 tablet by ity of 300-30 mg 00:00: mouth [place] tablet 00 every 6 Medical (six) Branch hours as needed for Pain (scale 4-6) for up to 20 doses. ondansetron Yes [id number] 4mg Take 1 Univers (ZOFRAN) 4 6-09 tablet by ity of mg tablet 00:00: mouth [place] 00 every 8 Medical (eight) Branch hours as needed for Nausea and Vomiting (N/V) for up to 10 doses. acetaminoph Yes [id number] 1{tbl} Take 1 Univers en-codeine 6-09 tablet by ity of 300-30 mg 00:00: mouth [place] tablet 00 every 6 Medical (six) Branch hours as needed for Pain (scale 4-6) for up to 20 doses. ondansetron Yes [id number] 4mg Take 1 Univers (ZOFRAN) 4 6-09 tablet by ity of mg tablet 00:00: mouth [place] 00 every 8 Medical (eight) Branch hours as needed for Nausea and Vomiting (N/V) for up to 10 doses. acetaminoph Yes [id number] 1{tbl} Take 1 Univers en-codeine 6-09 tablet by ity of 300-30 mg 00:00: mouth [place] tablet 00 every 6 Medical (six) Branch hours as needed for Pain (scale 4-6) for up to 20 doses. ondansetron Yes [id number] 4mg Take 1 Univers (ZOFRAN) 4 6-09 tablet by ity of mg tablet 00:00: mouth [place] 00 every 8 Medical (eight) Branch hours as needed for Nausea and Vomiting (N/V) for up to 10 doses. acetaminoph Yes [id number] 1{tbl} Take 1 Univers en-codeine 6-09 tablet by ity of 300-30 mg 00:00: mouth [place] tablet 00 every 6 Medical (six) Branch hours as needed for Pain (scale 4-6) for up to 20 doses. ondansetron 2019- No [id number] 4mg Take 1 Univers (ZOFRAN) 4 6-09 10- tablet by ity of mg tablet 00:00: 00:00 mouth [place] 00 :00 every 8 Medical (eight) Branch hours as needed for Nausea and Vomiting (N/V) for up to 10 doses. acetaminoph 2019- No [id number] 1{tbl} Take 1 Univers en-codeine 6- 10- tablet by ity of 300-30 mg 00:00: 00:00 mouth [place] tablet 00 :00 every 6 Medical (six) Branch hours as needed for Pain (scale 4-6) for up to 20 doses. ibuprofen Yes 800mg Take 800 Uni vers 800 mg 5-18 mg by ity of tablet 07:05: mouth [place] 12 every 6 Medical (six) Branch hours as needed for Pain (scale 1-3) or Pain (scale 4-6). traMADOL 50 2017-0 Yes 50mg Take 50 mg Univers mg tablet 5-18 by mouth 3 ity of 07:05: (three) [place] 12 times Medical daily. Branch ibuprofen 2017-0 Yes 800mg Take 800 Uni vers 800 mg 5-18 mg by ity of tablet 07:05: mouth [place] 12 every 6 Medical (six) Branch hours as needed for Pain (scale 1-3) or Pain (scale 4-6). traMADOL 50 2017-0 Yes 50mg Take 50 mg Univers mg tablet 5-18 by mouth 3 ity of 07:05: (three) [place] 12 times Medical daily. Branch ibuprofen 2017-0 Yes 800mg Take 800 Uni vers 800 mg 5-18 mg by ity of tablet 07:05: mouth [place] 12 every 6 Medical (six) Branch hours as needed for Pain (scale 1-3) or Pain (scale 4-6). traMADOL 50 Yes 50mg Take 50 mg Univers mg tablet 5-18 by mouth 3 ity of 07:05: (three) [place] 12 times Medical daily. Branch ibuprofen Yes 800mg Take 800 Uni vers 800 mg 5-18 mg by ity of tablet 07:05: mouth [place] 12 every 6 Medical (six) Branch hours as needed for Pain (scale 1-3) or Pain (scale 4-6). traMADOL 50 Yes 50mg Take 50 mg Univers mg tablet 5-18 by mouth 3 ity of 07:05: (three) [place] 12 times Medical daily. Branch Immunizations Ordered Filled Immunization Date Status Comments [facility] e Immunization Name Name Td 2017-04-02 Completed University of 00:00:00 [facility] Td 2017-04-02 Completed University of 00:00:00 [facility] Td 2017-04-02 Completed University of 00:00:00 [facility] Td 2017-04-02 Completed University of 00:00:00 [facility] Td 2017-04-02 Completed University of 00:00:00 [facility] Td 2017-04-02 Completed University of 00:00:00 [facility] Td 2017-04-02 Completed University of 00:00:00 [facility] Td 2017-04-02 Completed University of 00:00:00 [facility] Vital Signs Vital Name Observation Time Observation Value Comments Source Systolic blood 2022-02-04 20:24:00 112 mm[Hg] Univer sity of pressure [facility] Diastolic blood 2022-02-04 20:24:00 62 [facility]Hg[facility] 2022-02-04 20:24:00 88 /min [facility] Body temperature 2022-02-04 20:24:00 37.11 [place] Respiratory rate 2022-02-04 20:24:00 18 /min [facility] Body height 2022-02-04 20:24:00 172.7 cm [facility] Body weight 2022-02-04 20:24:00 81.647 kg [facility] BMI 2022-02-04 20:24:00 27.37 kg/m2 [facility] [place] [facility] Oxygen saturation in 2022-02-04 20:24:00 98 /min University of Arterial blood by [facility] Pulse oximetry Branch Systolic blood 2021-03-27 06:00:00 117 mm[Hg] Univer sity of pressure [place] [facility] Diastolic blood 2021-03-27 06:00:00 79 mm[Hg] Unive rsity of pressure [place] [facility] Heart rate 2021-03-27 06:00:00 81 /min [facility] [place] [facility] Respiratory rate 2021-03-27 06:00:00 16 /min Univ ers[facility] [place] [facility] Oxygen saturation in 2021-03-27 06:00:00 98 /min University of Arterial blood by [facility] Pulse oximetry Branch Body temperature 2021-03-27 02:58:00 37.11 Iliana [facility] ers[facility] [place] [facility] Body height 2021-03-27 02:58:00 172.7 cm [facility] [place] [facility] Body weight 2021-03-27 02:58:00 83.915 kg [facility] [place] [facility] BMI 2021-03-27 02:58:00 28.13 kg/m2 [facility] [place] [facility] Systolic blood 2020-09-10 20:00:00 125 mm[Hg] Univer sity of pressure [place] [facility] Diastolic blood 2020-09-10 20:00:00 93 mm[Hg] Unive rsity of pressure [place] [facility] Heart rate 2020-09-10 20:00:00 89 /min [facility] [place] [facility] Respiratory rate 2020-09-10 20:00:00 11 /min Univ ersity [facility] [place] [facility] Oxygen saturation in 2020-09-10 20:00:00 97 /min University of Arterial blood by [facility] Pulse oximetry Branch Body temperature 2020-09-10 18:15:00 36.83 Iliana [facility] ers[facility] [place] [facility] Body weight 2020-09-10 18:15:00 83.825 kg [facility] [place] [facility] BMI 2020-09-10 18:15:00 28.10 kg/m2 [facility] [place] [facility] Systolic blood 2020-01-05 02:03:00 104 mm[Hg] Univer sity of pressure [place] [facility] Diastolic blood 2020-01-05 02:03:00 63 mm[Hg] Unive rsity of pressure [place] [facility] Heart rate 2020-01-05 02:03:00 86 /min [facility] [place] [facility] Body temperature 2020-01-05 02:03:00 37.11 Iliana [facility] [place] [facility] Respiratory rate 2020-01-05 02:03:00 16 /min Univ ers[facility] [place] [facility] Body height 2020-01-05 02:03:00 172.7 cm [facility] [place] [facility] Body weight 2020-01-05 02:03:00 70.364 kg [facility] [place] [facility] BMI 2020-01-05 02:03:00 23.59 kg/m2 [facility] [place] [facility] Oxygen saturation in 2020-01-05 02:03:00 96 /min University of Arterial blood by [place] [facility] Pulse oximetry Branch Systolic blood 2020-01-05 02:03:00 104 mm[Hg] Univer sity of pressure [place] [facility] Diastolic blood 2020-01-05 02:03:00 63 mm[Hg] Unive rsity of pressure [place] [facility] Heart rate 2020-01-05 02:03:00 86 /min [facility] [place] [facility] Body temperature 2020-01-05 02:03:00 37.11 Iliana [facility] ers[facility] [place] [facility] Respiratory rate 2020-01-05 02:03:00 16 /min Univ ers[facility] [place] [facility] Body height 2020-01-05 02:03:00 172.7 cm [facility] [place] [facility] Body weight 2020-01-05 02:03:00 70.364 kg [facility] [place] [facility] BMI 2020-01-05 02:03:00 23.59 kg/m2 [facility] [place] [facility] Oxygen saturation in 2020-01-05 02:03:00 96 /min University of Arterial blood by [place] [facility] Pulse oximetry Branch Heart rate 2019-07-18 23:16:00 68 /min [facility] [place] [facility] Systolic blood 2019-07-18 23:15:00 105 mm[Hg] Univer sity of pressure [place] [facility] Diastolic blood 2019-07-18 23:15:00 71 mm[Hg] Unive rsity of pressure [place] [facility] Oxygen saturation in 2019-07-18 23:15:00 100 /min University of Arterial blood by [facility] Pulse oximetry Branch Respiratory rate 2019-07-18 22:50:00 20 /min [facility] Body temperature 2019-07-18 20:00:00 38.06 [place] Body height 2019-07-18 20:00:00 [facility] [place] [facility] 2019-07-18 20:00:00 63.504 kg [facility] BMI 2019-07-18 20:00:00 21.29 kg/m2 [facility] Heart rate 2019-07-18 23:16:00 68 /min [facility] Systolic blood 2019-07-18 23:15:00 105 mm[Hg] [facility] Diastolic blood 2019-07-18 23:15:00 71 mm[Hg] [facility] Oxygen saturation in 2019-07-18 23:15:00 100 /min [facility] Arterial blood by [facility] Pulse oximetry Branch Respiratory rate 2019-07-18 22:50:00 20 /min [facility] Body temperature 2019-07-18 20:00:00 38.06 Iliana [facility] Body height 2019-07-18 20:00:00 172.7 cm [facility] Body weight 2019-07-18 20:00:00 63.504 kg [facility] BMI 2019-07-18 20:00:00 21.29 kg/m2 [facility] Procedures Procedure Date / Time Performing Clinician Source Performed CT ABDOMEN PELVIS W 2022-02-04 22:01:18 Charles Page [facility] CONTRAST [facility] POCT TEST 2022-02-04 21:32:00 Charles Page [facility] URINALYSIS 2022-02-04 21:28:00 Charles Page [place] o [facility] LIPASE 2022-02-04 21:02:00 Charles Page [facility] COMP. METABOLIC PANEL 2022-02-04 21:02:00 [facility] ([id number]) [facility] CBC WITH DIFF 2022-02-04 21:02:00 Charles Page [facility] CONSENT/REFUSAL FOR 2022-02-04 20:19:55 Doctor Unassigned, [facility] Name [facility] CT HEAD WO CONTRAST 2021-03-27 05:19:15 Carlos A Howe [facility] NOTICE OF PRIVACY 2021-03-27 02:48:10 Doctor Unassigned, No [facility] PRACTICES Name Medical Branch CONSENT/REFUSAL FOR 2021-03-27 02:47:24 Doctor Unassigned, [facility] Name [facility] AUTHORIZATION FOR 2021-01-05 06:01:00 Doctor Unassigned, No [facility] RELEASE OF PHI Name [facility] XR CHEST 1 VW 2020-09-10 19:52:18 Carlos A Howe [facility] POCT TEST 2020-09-10 18:53:00 Carlos A Howe [facility] TROPONIN I 2020-09-10 18:52:00 Carlos A Howe [facility] HEPATIC FUNCTION PANEL 2020-09-10 18:52:00 Carlos A Howe [facility] ([id number]) (ALB,T.PRO,BILI [facility] T,BU/BC,ALT,AST,ALK PHOS) BASIC METABOLIC PANEL 2020-09-10 18:52:00 Carlos A [facility] (NA, K, CL, CO2, Medical Branch GLUCOSE, BUN, CREATININE, CA) SEDIMENTATION RATE 2020-09-10 18:52:00 Carlos A Howe [facility] CBC WITH DIFF 2020-09-10 18:52:00 Shyam Carlos A [facility] PROTHROMBIN TIME / INR 2020-09-10 18:52:00 Shyam Carlos A [facility] ACTIVATED PARTIAL 2020-09-10 18:52:00 Shyam [facility] THRMPLAS AB [facility] URINALYSIS 2020-09-10 18:52:00 Shyam [facility] N-TERMINAL PRO-BNP 2020-09-10 18:52:[facility] - [facility] SCREEN 2020-09-10 18:52:00 Carlos A Howe [facility] TRIAGE [facility] EKG-12 LEAD 2020-09-10 18:46:[facility]REFUSAL FOR 2020-09-10 18:09:08 Doctor [facility] [facility] [place] [facility] Name [facility] CONSENT/REFUSAL FOR 2020-01-04 23:48:01 Doctor Unassigned, No [facility] [place] [facility] Name [facility] CT ABDOMEN PELVIS W 2019-07-18 21:57:58 Amauri Joselin [facility] CONTRAST [facility] LIPASE 2019-07-18 20:28:[facility] 2019-07-18 20:28:00 [facility] COMP. METABOLIC PANEL 2019-07-18 20:28:00 Amauri [facility] ([id number]) [facility] CBC WITH DIFFERENTIAL 2019-07-18 20:28:00 Amauri Joselin [facility] URINALYSIS 2019-07-18 20:28:00 Amauri [facility] POCT TEST 2019-07-18 20:28:00 Amauri [facility] LACTIC ACID WHOLE BLOOD 2019-07-18 20:27:00 Amauri [facility] NOTICE OF PRIVACY 2019-07-18 19:50:59 Doctor Unassigned, No [facility] PRACTICES [facility] CONSENT/REFUSAL FOR 2019-07-18 19:50:41 Doctor Unassigned, No [facility] [place] DI[facility] AND TREATMENT Name [facility] Encounters Start End Encounter Admission Attending Care Care Encounter Source Date/Time Date/Time Type Type Clinicians Facility Department ID 2021-09-15 Emergency [facility] [id number] [facility]-14 Emergency [facility] [id number] Univers 01:04:25 [facility] 2022-02-04 2022-02-04 Emergency X MIKE PAGE ERT [id number] Univers 15:27:00 17:56:00 CHARLES [facility] 2022-02-04 2022-02-04 Mariia Page [place] [id number] Univers 15:27:00 17:56:00 Charles DAVENPORT 350.1.13.10 i ty of [place] 4.2.7.2.686 [facility] [id number] [address] 2021-03-26 2021-03-27 Emergency Shyam, [facility] [id number] Univers 21:59:00 01:36:00 Carlos A Davenport 350.1.13.10 i ty of [place] 4.2.7.2.686 [facility] [id number] [address] 2021-01-05 2021-01-05 Orders Doctor OLIVER [id number] Univers 00:00:00 00:00:00 Only Unassigned, KARLI 350.1.13.10 [facility]y [facility] [place] [facility] 4.2.7.2.686 Andrew as [phone] [address] 2020-10-03 2020-10-03 Outpatient attema_coretta MM [facility] [id number] [place] 02:19:00 02:19:00 [facility] 2020-09-10 2020-09-10 Emergency Shyam, [facility] [id number] Univers 13:20:00 15:28:00 Carlos A Davenport 350.1.13.10 i ty of [place] 4.2.7.2.686 [facility] [id number] [address] 2020-01-04 2020-01-04 Nurse Nurse, [facility] 1.2 .840.114 [id number] Univers 19:32:45 19:33:23 Visit Unknown, Attending Health 350.1.13.10 ity of Surgical 4.2.7.2.686 Andrew as Specialti [id number] Nv dical 370 [facility] 2020-01-04 2020-01-04 Nurse NurseRobert [facility] 1.2.840.114 [id number] 19:32:45 19:33:23 Visit Urgent Care Health 350.1.13.10 Surgical 4.2.7.2.686 Specialti [phone] es [address] [place] 2020-01-04 2020-01-04 Orders Doctor OLIVER 1.2.840.114 [id number] Univers 00:00:00 00:00:00 Only Unassigned, KARLI 350.1.13.10 ity [facility] [place] [facility] 4.2.7.2.686 Andrew as [id number] [address] 2020-01-04 2020-01-04 Orders Doctor BOYD 1.2.840.114 [id number] 00:00:00 00:00:00 Only Unassigned, KARIL 350.1.13.10 [place] [facility] 4.2.7.2.686 [id number] 009 2019-07-18 2019-07-18 [facility] [id number] [facility] 14:59:08 19:20:00 Joselin Daven[place] 350.1.13.10 i ty of [place] 4.2.7.2.686 [facility] [phone] [address] 2019-07-18 2019-07-18 [facility] [id number] 14:59:08 19:20:00 Joselin [place] 350.1.13.10 [place] 4.2.7.2.686 [place] [id number] [facility] 2019-07-18 2019-07-18 Orders Doctor BOYD 1.2.840.114 [id number] Univers 00:00:00 00:00:00 Only Unassigned, KARLI 350.1.13.10 ity of [place] [facility] 4.2.7.2.686 Andrwe as [id number] [address] 2019-07-18 2019-07-18 Orders Doctor BOYD 1.2.840.114 [id number] 00:00:00 00:00:00 Only Unassigned, KARLI 350.1.13.10 [facility] 4.2.7.2.686 [id number] 2013-07-14 2013-07-14 Emergency ER SANKET, [facility] [id number] [place] 12:55:00 13:36:00 [facility] -[id number] [facility] 2013-05-21 2013-05-22 Emergency ER TOM, [facility] [id number] [place] 22:24:00 00:26:00 OLIVIA -[id number] d a [facility] 2013-05-11 2013-05-12 Emergency ER DAVID, [facility] [id number] [place] 23:27:00 01:47:00 JOSHUA -[id number] [facility] 2013-01-18 2013-01-18 Emergency ER YESICAS, [facility] [id number] [place] 14:50:00 15:58:00 ABDIFATAH -[id number] [facility] 2012-12-26 2012-12-26 Emergency ER SMITH, [facility] [id number] [place] 19:29:00 20:26:00 JOHNSON -[id number] [facility] 2012-12-17 2012-12-17 Emergency ER SKY, [facility] [id number] [place] 19:37:00 23:00:00 CASH -[id number] [facility] 2011-11-09 2011-11-10 Inpatient ER CHERELLE, [facility] [id number] [place] 07:00:00 12:55:00 INES -[id number] [facility] 2011-10-05 2011-10-05 Emergency ER ILYA, [facility] [id number] [place] 09:32:00 18:34:00 ADEN -[id number] [facility] 2011-03-09 2011-03-09 Emergency ER SEAN, [facility] [id number] [place] 16:47:00 18:20:00 DAVION -[id number] [facility] 2010-12-29 2010-12-29 Emergency ER RAMBO CARLIN [facility] [id number] [place] 20:05:00 22:50:00 -[id number] [facility] 2010-09-25 2010-09-25 Outpatient EL LINSEY PACK [facility] [id number] [place] 06:04:00 06:04:00 -[id number] [facility] 2010-09-07 2010-09-07 Emergency ER TOM, [facility] [id number] [place] 14:28:00 17:14:00 OLIVIA -[id number] d a [facility] 2010-08-13 2010-08-16 Inpatient ER ALDO, [facility] [id number] [place] 12:24:00 12:32:00 PRISCILLA -[id number] [facility] 2010-08-01 2010-08-01 Outpatient LINSEY CAUSEY [facility] [id number] [place] 11:01:00 11:01:00 -[id number] [facility] 2010-01-06 2010-01-07 Emergency ER SEAN, [facility] [id number] [place] 23:22:00 05:25:00 DAVION -[id number] [facility] 2009-03-05 2009-03-05 Emergency ER QUIRINO, [facility] [id number] [place] 20:16:00 22:30:00 ORA -[id number] [facility] Results Test Description Test Time Test Comments Results Result Comments Source POCT TEST 2022-02-04 21:32:00 Test Item Value Reference Range Interpretation Comme nts POCT PREG (test code = 1605) negative On board controls acceptable with C Line (test code = 3574) present POCT PREG LOT # (test code = 3575) [id number] POCT PREG TEST DATE (test code = 3576) 01/13/2023 Lab Interpretation (test code = 88459-4) Normal [facility]. METABOLIC PANEL ([id number])2022-02-04 21:29:41 Test Item Value Reference Range Interpretation Comments NA (test code = 141 mmol/L 135-145 2430084295) K (test code = 3.9 mmol/L 3.5-5.0 5137551745) CL (test code = 106 mmol/L 98-108 0165287552) CO2 TOTAL (test code = 24 mmol/L 23-31 5944093411) AGAP (test code = 2-16 7249532215) BUN (test code = 8 mg/dL 7-23 4215309107) GLUCOSE (test code = 113 mg/dL 70-110 H 1584431860) CREATININE (test code = 0.78 mg/dL 0.50-1.04 5750635816) TOTAL BILI (test code = 0.6 mg/dL 0.1-1.9 3502039060) CALCIUM (test code = 9.6 mg/dL 8.6-10.6 6382803296) T PROTEIN (test code = 7.9 g/dL 6.3-8.2 8441032575) ALBUMIN (test code = 4.9 g/dL 3.5-5.0 3655688431) ALK PHOS (test code = 56 U/L 34-122 9316562465) ALTv (test code = 29 U/L 5-35 1742-6) AST(SGOT) (test code = 20 U/L 13-40 8055120217) eGFR (test code = mL/min/1.73m2 1924368891) JHOAN (test code = JHOAN) Association of Glomerular Filtration Rate (GFR) and Staging of Kidney Disease* + --+ --+ ------+| GFR (mL/min/1.73 m2) ?| With Kidney Damage ?| ?Without Kidney Damage+ --------+ --------+ +| ?>90 ?| ?Stage one ?| ? Normal ?+ ---+ ---+ -------+| ?60-89 ?| ?Stage two ?| ? Decreased GFR ? + --+ --+ ------+| ?30-59 ?| ?Stage three ?| ? Stage three ? + --+ --+ ------+| ?15-29 ?| ?Stage four ? | ? Stage four ?+ ---+ ---+ -------+| ?<15 (or dialysis) ? ?| ?Stage five ? | ? Stage five ?+ ---+ ---+ -------+ *Each stage assumes the associated GFR level has been in effect for at least three months. ?Stages 1 to 5, with or without kidney disease, indicate chronic kidney disease. Notes: Determination of stages one and two (with eGFR >59mL/min/1.73 m2) requires estimation of kidney damage for at least three months as defined by structural or functional abnormalities of the kidney, manifested by either:Pathological abnormalities or Markers of kidney damage (including abnormalities in the composition of the blood or urine or abnormalities in imaging tests). Lab Interpretation Abnormal (test code = 17041-8) [facility]20[facility] 21:29:21 Test Item Value Reference Range Interpretation Comments LIPASE (test code = 6480422964) 299 U/L 0-220 H Lab Interpretation (test code = Abnormal 98072-2) [facility] AllianceCB WITH [id number] 21:22:42 Test Item Value Reference Range Interpretation Comments WBC (test code = See_Comment [Automated message] 3690-2) The system [employer] generated this result transmitted ref erence range: 4.30 - 1 1.10 10*3/?L. The re ference range was not u sed to interpret this result as normal/abnor mal. RBC (test code = See_Comment [Automated message] 029-8) The system [employer] generated this result transmitted ref erence range: 3.93 - 5 .25 10*6/?L. The re ference range was not u sed to interpret this result as normal/abnor mal. HGB (test code = 14.6 g/dL 11.6-15.0 718-7) HCT (test code = 42.8 % 35.7-45.2 4544-3) MCV (test code = 90.7 fL 80.6-95.5 787-2) MCH (test code = 30.9 pg 25.9-32.8 785-6) MCHC (test code = 34.1 g/dL 31.6-35.1 786-4) RDW-SD (test code 49.5 fL 39.0-49.9 = 16478-8) RDW-CV (test code 14.9 % 12.0-15.5 = 788-0) PLT (test code = See_Comment [Automated message] 147-3) The system [employer] generated this result transmitted ref erence range: 166 - 35 8 10*3/?L. The re ference range was not u sed to interpret this result as normal/abnor mal. MPV (test code = 11.4 fL 9.5-12.9 10916-1) NRBC/100 WBC (test See_Comment [Automat ed message] code = 3650986636) The [employer] which generated this result transmitted ref erence range: 0.0 - 10 .0 /100 WBCs. The refer ence range was not u sed to interpret this result as normal/abnor mal. NRBC x10^3 (test <0.01 See_Comment [Automated message] code = 1346742950) The syste m which generated this result transmitted ref erence range: 10*3/?L. The reference range was not used to interpr et this result as normal/abnormal . GRAN MAT (NEUT) % 66.2 % (test code = 770-8) IMM GRAN % (test 0.20 % code = 9456578486) LYMPH % (test code 24.8 % = 736-9) MONO % (test code 7.7 % = 5905-5) EOS % (test code = 0.7 % 713-8) BASO % (test code 0.4 % = 706-2) GRAN MAT 5.32 10*3/uL 1.88-7.09 x10^3(ANC) (test code = 3389221641) IMM GRAN x10^3 <0.03 0.00-0.06 (test code = 1105995576) LYMPH x10^3 (test 2.00 10*3/uL 1.32-3.29 code = 731-0) MONO x10^3 (test 0.62 10*3/uL 0.33-0.92 code = 742-7) EOS x10^3 (test 0.06 10*3/uL 0.03-0.39 code = 711-2) BASO x10^3 (test 0.03 10*3/uL 0.01-0.07 code = 704-7) [facility] AllianceXR CHEST 1 [id number] 19:57:02CHEST ONE VIEW HISTORY: ?Cardiomegaly TECHNIQUE: ?AP view of the chest is obtained. COMPARISON: 05/04/2019 FINDINGS: Lungs are clear. Heart size and mediastinal silhouette arenormal. No pleural effusionor pneumothorax is seen. CONCLUSIONS: No acute cardiopulmonary disease. Mdmb, Radiant Results Inft User - 09/10/2020 2:58 PM CDTCHEST ONE VIEWHISTORY: CardiomegalyTECHNIQUE: AP view of the chest is obta ined.COMPARISON: 05/04/2019FINDINGS: Lungs are clear. Heart size and mediastinal silhouette arenormal. No pleural effusion or pneumothorax is seen.CONCLUSIONS: No acute cardiopulmonary disease.[facility] with [id number] 19:40:00 Test Item Value Reference Range Interpretation Comments WBC (test code = See_Comment L [Automated 6690-2) message] The sy stem which generated this result transmitted reference range : 4.30 - 11.10 10*3/?L. The reference range was not used to interpret this result as normal/abnormal . RBC (test code = See_Comment L [Automated 789-8) message] The sy stem which generated this result transmitted reference range : 3.93 - 5.25 10*6/?L. The reference range was not used to interpret this result as normal/abnormal . HGB (test code = 12.1 g/dL 11.6-15 718-7) HCT (test code = 35.9 % 35.7-45.2 4544-3) MCV (test code = 92.8 fL 80.6-95.5 787-2) MCH (test code = 31.3 pg 25.9-32.8 785-6) MCHC (test code = 33.7 g/dL 31.6-35.1 786-4) RDW-SD (test code = 46.3 fL 39-49.9 38167-7) RDW-CV (test code = 14.0 % 12-15.5 788-0) PLT (test code = See_Comment [Automated 777-3) message] The sy stem which generated this result transmitted reference range : 166 - 358 10*3/ ?L. The reference r sarika was not used to interpret this result as normal/abnormal . MPV (test code = 10.5 fL 9.5-12.9 17443-1) NRBC/100 WBC (test See_Comment [Automat ed code = 7058941253) message] The system which generated this result transmitted reference range : 0.0 - 10.0 /100 WBCs. The refer ence range was not u sed to interpret th is result as normal/abnormal . NRBC x10^3 (test code <0.01 See_Comment [Auto mated = 8222661352) message] The s ystem which generated this result transmitted reference range : 10*3/?L. The reference range was not used to interpret this result as normal/abnormal . GRAN MAT (NEUT) % 45.8 % (test code = 770-8) IMM GRAN % (test code 0.30 % = 1573565370) LYMPH % (test code = 38.0 % 736-9) MONO % (test code = 11.6 % 5905-5) EOS % (test code = 3.8 % 713-8) BASO % (test code = 0.5 % 706-2) GRAN MAT x10^3(ANC) 1.82 10*3/uL 1.88-7.09 L (test code = 4510115508) IMM GRAN x10^3 (test <0.03 0-0.06 code = 8390026392) LYMPH x10^3 (test code 1.51 10*3/uL 1.32-3.29 = 731-0) MONO x10^3 (test code 0.46 10*3/uL 0.33-0.92 = 742-7) EOS x10^3 (test code = 0.15 10*3/uL 0.03-0.39 711-2) BASO x10^3 (test code <0.03 0.01-0.07 = 704-7) Lab Interpretation Abnormal (test code = 21546-8) [facility] AllianceSEDIMENTATION [id number] 19:34:00 Test Item Value Reference Range Interpretation Comments ESR (test code = See_Comment H [Automated message] 5567449930) The system ic h generated this result transmitted ref erence range: 0 - 20 m m/HR. The reference r sarika was not used to interpret this result as normal/abnor mal. Lab Interpretation (test Abnormal code = 41840-9) [facility] AllianceTroponin [id number] 19:30:00 Test Item Value Reference Range Interpretation Comments TROPONIN I (test <0.012 See_Comment [Automated code = 3988213422) message] The system which generated this result transmitted reference range : <=0.034 ng/mL. The reference range was not used to interpr et this result as normal/abnormal . JHOAN (test code = Equal or Less than JHOAN) 0.034 ng/ml---Normal ?Note: Cardiac troponin begins to rise 3-4 hours after the onset of ischemia. Repeat in 4-6 hours if the sample was drawn within 3-4 hours of the onset of the symptom and found normal. Between 0.035 and 0.120 ng/mL--- Borderline. Questionable myocardial injury or necrosis ? ?Note: Serial measurement may be necessary to confirm or exclude the diagnosis of myocardial injury or necrosis; Clinical correlation (symptoms, EKGs, imaging studies, and others) required; Repeat in 4-6 hours if clinically indicated. ? Equal or Higher than 0.121 ng/mL---Abnormal. Myocardial Injury or Necrosis Likely ? Biotin has been reported to cause a negative bias, interpret results relative to patient's use of biotin. ? Lab Interpretation Normal (test code = 99601-9) [facility] AllianceaPTT2020-10-26 19:30:00 Test Item Value Reference Range Interpretation Comments APTT Patient (test See_Comment [Automat ed code = 3173-2) message] The system which generated this result transmitted reference range : 23 - 38 Seconds . The reference range was not used to interpr et this result as normal/abnormal . JHOAN (test code = JHOAN) The [facility] patient population mean normal value for aPTT is 30 seconds. Lab Interpretation Normal (test code = 28508-5) [facility] AllianceProthrombin Time (PT) / [id number] 19:28:00 Test Item Value Reference Range Interpretation Comments PROTIME PATIENT (test See_Comment [Auto mated message] code = 5964-2) The system wh ich generated this result transmitted ref erence range: 12.0 - 1 4.7 Seconds. The re ference range was not u sed to interpret this result as normal/abnor mal. INR (test code = 6301-6) Nor mal INR <1.1; Warfarin Therap eutic range 2.0 to 3. 0 or 2.5 to 3.5, dep ending upon the indica tions. Lab Interpretation (test Normal code = 15527-1) [facility] AllianceN-TERMINAL [id number] 19:28:00 Test Item Value Reference Range Interpretation Comments NT-proBNP (test code 50 pg/mL See_Comment [Autom ated = 8305641300) message] The system which generated this result transmitted reference range : <=125. The reference range was not used to interpret this result as normal/abnormal . JHOAN (test code = JHOAN) Biotin has been reported to cause a negative bias, interpret results relative to patient's use of biotin. Lab Interpretation Normal (test code = 32470-6) [facility] / [facility] - DRUG SCREEN [id number] 19:22:00 Test Item Value Reference Range Interpretation Comments BENZO U (test code = Presumptive Positive Negative A 7241862950) ELLA U (test code = Negative Negative 7578120919) AMPHET (test code = Negative Negative 4711846784) THC (test code = Negative Negative 5148539985) METHADONE (test code = Negative Negative 3890742477) Meth U (test code = Negative Negative 2206900028) OPIATES (test code = Negative Negative 6166861099) Cocaine Metabolite (test Negative Negative code = 2229846540) PROPOXY (test code = Negative Negative 5015502221) Tric U (test code = Negative Negative 2678192890) PCP (test code = Negative Negative 0710657999) OXYCOD (test code = Presumptive Positive Negative A 3616796064) JHOAN (test code = JHOAN) Urine Drug Cutoff Ranges Benzodiazepines: ? ? 150 ng/mLBarbiturates: ?200 ng/mLAmphetamine: ? 500 ng/mLCannabinoids: ?50 ?ng/mLMethadone: ? 200 ng/mLMethamphetamine: ? ? 500 ng/mL Opiates: ? 100 ng/mL or 2000 ng/mLCocaine: ? 150 ng/mLPropoxyphene: ?300 ng/mLTricyclics: ?300 ng/mLOxycodone: ? 100 ng/mLPCP: ? 25 ?ng/mL The results are to be used only for medical (i.e., treatment) purposes. Unconfirmed screening results must not be used for non-medical purposes (e.g., employment testing, legal testing). Lab Interpretation (test Abnormal code = 99482-0) [facility] Metabolic Panel (NA, K, CL, CO2, GLUCOSE, BUN, CREATININE, CA)2020-09-10 19:19:00 Test Item Value Reference Range Interpretation Comments NA (test code = 138 mmol/L 135-145 9165231929) K (test code = 3.3 mmol/L 3.5-5 L 6949925018) CL (test code = 103 mmol/L 98-108 7387683755) CO2 TOTAL (test code = 30 mmol/L 23-31 8479211882) AGAP (test code = 2-16 8130550038) BUN (test code = 13 mg/dL 7-23 2139532158) GLUCOSE (test code = 97 mg/dL 70-110 4610460205) CREATININE (test code = 0.80 mg/dL 0.5-1.04 9814670737) CALCIUM (test code = 8.9 mg/dL 8.6-10.6 3414157011) eGFR Calculation mL/min/1.73m2 (Non-) (test code = 9941179699) eGFR Calculation mL/min/1.73m2 () (test code = 5978348801) JHOAN (test code = JHOAN) Association of Glomerular Filtration Rate (GFR) and Staging of Kidney Disease* + --+ --+ ------+| GFR (mL/min/1.73 m2) ?| With Kidney Damage ?| ?Without Kidney Damage+ --------+ --------+ +| ?>90 ?| ?Stage one ?| ? Normal ?+ ---+ ---+ -------+| ?60-89 ?| ?Stage two ?| ? Decreased GFR ? + --+ --+ ------+| ?30-59 ?| ?Stage three ?| ? Stage three ? + --+ --+ ------+| ?15-29 ?| ?Stage four ? | ? Stage four ?+ ---+ ---+ -------+| ?<15 (or dialysis) ? ?| ?Stage five ? | ? Stage five ?+ ---+ ---+ -------+ *Each stage assumes the associated GFR level has been in effect for at least three months. ?Stages 1 to 5, with or without kidney disease, indicate chronic kidney disease. Notes: Determination of stages one and two (with eGFR >59mL/min/1.73 m2) requires estimation of kidney damage for at least three months as defined by structural or functional abnormalities of the kidney, manifested by either:Pathological abnormalities or Markers of kidney damage (including abnormalities in the composition of the blood or urine or abnormalities in imaging tests). Lab Interpretation Abnormal (test code = 75176-7) [facility] (ALB, T.PRO, BILI T, BU/BC, ALT, AST, ALK PHOS)2020-09-10 19:19:00 Test Item Value Reference Range Interpretation Comments TOTAL BILI (test code = 6379401036) 0.3 mg/dL 0.1-1.1 BILI UNCON (test code = 2643900103) 0.3 mg/dL 0.1-1.1 BILI CONJ (test code = 6152833242) 0.0 mg/dL 0-0.3 T PROTEIN (test code = 0817000648) 6.3 g/dL 6.3-8.2 ALBUMIN (test code = 2205546736) 3.6 g/dL 3.5-5 ALK PHOS (test code = 1156826518) 36 U/L 34-122 ALTv (test code = 1742-6) 12 U/L 5-35 AST(SGOT) (test code = 1495467899) 31 U/L 13-40 Lab Interpretation (test code = Normal 24854-1) [facility] Alliance[facility]inalysis2020-10-26 19:16:00 Test Item Value Reference Range Interpretation Comments APPEARANCE (test code = Clear Clear 1973677371) COLOR (test code = Straw Yellow A 8769057444) PH (test code = 4.8-8.0 4778053131) SP GRAVITY (test code = 1.003-1.030 6514137185) GLU U QUAL (test code = Normal Normal 5363144407) BLOOD (test code = Negative Negative 5739274168) KETONES (test code = Negative Negative 0382169811) PROTEIN (test code = Negative Negative 2887-8) UROBILIN (test code = Normal Normal 8370905350) BILIRUBIN (test code = Negative Negative 2090366469) NITRITE (test code = Negative Negative 8644015512) LEUK LIVAN (test code = Negative Negative 7761688670) RBC/HPF (test code = See_Comment [Autom ated message] 8893618324) The system Zafu generated this result transmitted ref erence range: 0 - 3 HP F. The reference range was not used to int erpret this result as normal/abnormal . WBC/HPF (test code = See_Comment [Autom ated message] 8918937657) The system Zafu generated this result transmitted ref erence range: 0 - 5 HP F. The reference range was not used to int erpret this result as normal/abnormal . BACTERIA (test code = Negative Negative 3674030394) SQ EPITH (test code = HPF 7855810406) Lab Interpretation (test Abnormal code = 81904-0) [facility] AlliancePOWY [id number] 18:53:00 Test Item Value Reference Range Interpretation Comments POCT PREG (test code = 1605) negative On board controls acceptable with present C Line (test code = 3574) POCT PREG LOT # (test code = 3575) [id number] POCT PREG TEST DATE (test 02-13-22 code = 3576) Lab Interpretation (test code = Normal 69738-6) [facility] ABDOMEN PELVIS W [id number] 00:19:11 1.?Mild concentric bladder wall thickening concerning for cystitis.Laboratory correlation is recommended . IJacey?MD John., have reviewed this study and agree with the abovereport.EXAM: CT ABDOMEN/PELVIS WITH CONTRAST HISTORY:?39 years-old Female presenting with Abd pain, acute, generalized,with fever COMPARISON: CT abdomen pelvis 04/24/2019 DOSE: 261 mGycm TECHNIQUE AND FINDINGS: Contiguous axialimaging from the level of the lungbases through the pubic symphysis was performed after the uncomplicatedadministration of 120 cc of intravenous Omnipaque contrast. Coronal andsagittal reconstructions were obtained.?Auto mA and/or iterativereconstruction were used to reduce radiation dose. FINDINGS: LOWER THORAX: The lung bases are clear. No cardiomegaly. HEPATOBILIARY: Subcentimeter hypodensity in hepatic segment IV CT forfurther characterize, but likely represents a simple hepatic cysts. Nobiliary ductal dilation. No gallbladder wall thickening. SPLEEN: No splenomegaly. No abnormality identified in the spleen. PANCREAS: No ductal dilation or masses. No abnormality identified in thepancreas. ADRENAL GLANDS: No adrenal nodules. No abnormality identified in theadrenal glands. KIDNEYS: No hydronephrosis, stones, or masses. The kidneys enhancesymmetrically without evidence of wedge-shaped hypodensities. PERITONEUM AND RETROPERITONEUM: No free air or fluid. LYMPH NODES: No enlarged lymph nodes by CT size criteria. GI TRACT: No bowel wall thickening or dilation. Prior appendectomy. PELVIS/BLADDER: Prior partial hysterectomy. The urinary bladder isdistended with mild concentric wall thickening. 2.1cm cyst is seen in theright ovary likely consistent with a dominant follicle. VESSELS: Unremarkable.BONES AND SOFT TISSUES: A T12 superior endplate Schmorl's node is noted. Nosuspicious lytic or sclerotic bony lesions. [facility], Radiant Results Inft User - 07/18/2019 7:21 PM CDTEXAM: CT ABDOMEN/PELVIS WITH CONTRASTHISTORY: 39 years-old Female presenting with Abd pain, acute, generalized,with fever COMPARISON: CT abdomen pelvis 04/24/2019DOSE: 261 mGycmTECHNIQUE AND FINDINGS: Contiguous axial imaging fromthe level of the lungbases through the pubic symphysis was performed after the uncomplicatedadministration of 120 cc of intravenous Omnipaque contrast. Coronal andsagittal reconstructions were obtained. Auto mA and/or iterativereconstruction were used to reduce radiation dose.FINDINGS:LOWER THORAX: The lung bases are clear. No cardiomegaly.HEPATOBILIARY: Subcentimeter hypodensity in hepatic segment IV CT forfurther characterize, but likely represents a simple hepatic cysts. Nobiliary ductal dilation. No gallbladder wall thickening. SPLEEN: No splenomegaly. No abnormality identified in the spleen. PANCREAS: No ductal dilation or masses. No abnormality identified in thepancreas. ADRENAL GLANDS: No adrenal nodules. No abnormality identified in theadrenal glands. KIDNEYS: No hydronephrosis, stones, or masses. The kidneys enhancesymmetrically without evidence of wedge-shaped hypodensities.PERITONEUM A ND RETROPERITONEUM: No free air or fluid.LYMPH NODES: No enlarged lymph nodes by CT size criteria.GITRACT: No bowel wall thickening or dilation. Prior appendectomy.PELVIS/BLADDER: Prior partial hysterectomy. The urinary bladder isdistended with mild concentric wall thickening. 2.1 cm cyst is seen in t heright ovary likely consistent with a dominant follicle.VESSELS: Unremarkable.BONES AND SOFT TISSUES: A T12 superior endplate Schmorl's node is noted. Nosuspicious lytic or sclerotic bony lesions.IMPRESSION1. Mild concentric bladder wall thickening concerning for cystitis.Laboratory correlation is rec ommended .I, Jacey Lopez MD., have reviewed this study and agree with the abovereport.[facility] AllianceLactic Acid Whole [id number] 22:07:00 Test Item Value Reference Range Interpretation Comments LACTIC ACID (test code = 1.39 mmol/L 0.5-2.2 9130981410) Lab Interpretation (test code = Normal 66537-3) [facility] AllianceTROPONIN [id number] 21:59:00 Test Item Value Reference Range Interpretation Comments TROPONIN I (test <0.012 See_Comment [Automated code = 3250026108) message] The system which generated this result transmitted reference range : <=0.034 ng/mL. The reference range was not used to interpr et this result as normal/abnormal . JHOAN (test code = Equal or Less than JHOAN) 0.034 ng/ml---Normal?Not e: Cardiac troponin begins to rise 3-4 hours after the onset of ischemia. Repeat in 4-6 hours if the sample was drawn within 3-4 hours of the onset of the symptom and found normal. Between 0.035 and 0.120 ng/mL--- Borderline. Questionable myocardial injury or necrosis?Note: Serial measurement may be necessary to confirm or exclude the diagnosis of myocardial injury or necrosis; Clinical correlation (symptoms, EKGs, imaging studies, and others) required; Repeat in 4-6 hours if clinically indicated.? Equal or Higher than 0.121 ng/mL---Abnormal. Myocardial Injury or Necrosis Likely? Biotin has been reported to cause a negative bias, interpret results relative to patient's use of biotin.? ? Lab Interpretation Normal (test code = 58047-2) [facility]. METABOLIC PANEL (14555)2019-07-18 21:42:00 Test Item Value Reference Range Interpretation Comments NA (test code = 143 mmol/L 135-145 8769652269) K (test code = 3.9 mmol/L 3.5-5 1060825898) CL (test code = 104 mmol/L 98-108 7075620092) CO2 TOTAL (test code = 24 mmol/L 23-31 1497206771) AGAP (test code = 2-16 6424721407) BUN (test code = 12 mg/dL 7-23 8264986411) GLUCOSE (test code = 107 mg/dL 70-110 6214510584) CREATININE (test code = 1.16 mg/dL 0.5-1.04 H 6580359512) TOTAL BILI (test code = 0.6 mg/dL 0.1-1.9 0432546175) CALCIUM (test code = 9.6 mg/dL 8.6-10.6 5197941956) T PROTEIN (test code = 8.6 g/dL 6.3-8.2 H 0806839538) ALBUMIN (test code = 4.9 g/dL 3.5-5 9560788502) ALK PHOS (test code = 45 U/L 34-122 8547712632) ALT(SGPT) (test code = 13 U/L 9-51 9767218452) AST(SGOT) (test code = 23 U/L 13-40 7913422794) eGFR Calculation mL/min/1.73m2 (Non-) (test code = 3884759926) eGFR Calculation mL/min/1.73m2 () (test code = 8316358881) JHOAN (test code = JHOAN) Association of Glomerular Filtration Rate (GFR) and Staging of Kidney Disease*+ + + +| GFR (mL/min/1.73 m2)?| With Kidney Damage?|?Without Kidney Damage+ --------+ --------+ +|?>90?|?S brente one?|? Normal?+ ---------+ ---------+ +|?60-89? |?Stage two?|? Decreased GFR? + --+ --+ ------+|?30-59?|?Stage three?|? Stage three? + --+ --+ ------+|?15-29?|?Stage four? |? Stage four?+ -------+ -------+ +|?<15 (or dialysis)?|?Stage five? |? Stage five?+ -------+ -------+ +*Each stage assumes the associated GFR level has been in effect for at least three months.?Stages 1 to 5, with or without kidney disease, indicate chronic kidney disease.Notes: Determination of stages one and two (with eGFR >59mL/min/1.73 m2) requires estimation of kidney damage for at least three months as defined by structural or functional abnormalities of the kidney, manifested by either:Pathological abnormalities or Markers of kidney damage (including abnormalities in the composition of the blood or urine or abnormalities in imaging tests). Lab Interpretation Abnormal (test code = 70632-9) [facility] AllianceLIPASE2019-09-02 21:42:00 Test Item Value Reference Range Interpretation Comments LIPASE (test code = 3385297146) 165 U/L 0-220 Lab Interpretation (test code = Normal 27070-5) [facility] AllianceURINALYSIS2019-09-02 21:34:00 Test Item Value Reference Range Interpretation Comments APPEARANCE (test code Slightly Cloudy Clear A = 0931802832) COLOR (test code = Yellow Yellow 5553984163) PH (test code = 4.8-8.0 7363540231) SP GRAVITY (test code 1.003-1.030 = 1274172450) GLU U QUAL (test code Negative Negative = 3567739949) BLOOD (test code = Negative Negative 6655064327) KETONES (test code = Trace Negative A 8702478357) PROTEIN (test code = 30 mg/dL Negative A 2887-8) UROBILIN (test code = 0.2 mg/dL See_Comment [Auto mated 4412167195) message] The system which generated this result transmit jerald reference range : 0-1.0 mg/dL. Th e reference range was not used to interpret this result as normal/abnormal . BILIRUBIN (test code Small Negative A = 3261863182) NITRITE (test code = Negative Negative 5150489259) LEUK LIVAN (test code Negative Negative = 6500072715) RBC/HPF (test code = See_Comment [Autom ated 8246822808) message] The system which generated this result transmit jerald reference range : 0 - 3 HPF. The reference range was not used to interpret this result as normal/abnormal . WBC/HPF (test code = See_Comment H [Autom ated 8952451792) message] The system which generated this result transmit jerald reference range : 0 - 5 HPF. The reference range was not used to interpret this result as normal/abnormal . BACTERIA (test code = Many Negative A 7390994242) TRANS EPI (test code See_Comment H [Autom ated = 7762928478) message] The system which generated this result transmit jerlad reference range : <=1 HPF. The reference range was not used to interpret this result as normal/abnormal . ELADIA EPITH (test code HPF = 0464576298) Ictotest (test code = Negative 0067223260) Lab Interpretation Abnormal (test code = 45353-2) [facility] WITH [id number] 21:20:00 Test Item Value Reference Range Interpretation Comments WBC (test code = See_Comment [Automated message] 6690-2) The system Zafu generated this result transmitted ref erence range: 4.30 - 1 1.10 10*3/?L. The re ference range was not u sed to interpret this result as normal/abnor mal. RBC (test code = See_Comment [Automated message] 519-8) The system Zafu generated this result transmitted ref erence range: 3.93 - 5 .25 10*6/?L. The re ference range was not u sed to interpret this result as normal/abnor mal. HGB (test code = 14.9 g/dL 11.6-15 718-7) HCT (test code = 43.1 % 35.7-45.2 4544-3) MCV (test code = 88.0 fL 80.6-95.5 787-2) MCH (test code = 30.4 pg 25.9-32.8 785-6) MCHC (test code = 34.6 g/dL 31.6-35.1 786-4) RDW-SD (test code 39.7 fL 39-49.9 = 96342-1) RDW-CV (test code 12.5 % 12-15.5 = 788-0) PLT (test code = See_Comment [Automated message] 777-3) The system Zafu generated this result transmitted ref erence range: 166 - 35 8 10*3/?L. The re ference range was not u sed to interpret this result as normal/abnor mal. MPV (test code = 10.8 fL 9.5-12.9 14873-5) NRBC/100 WBC (test See_Comment [Automat ed message] code = 5733412166) The syste m which generated this result transmitted ref erence range: 0.0 - 10 .0 /100 WBCs. The refer ence range was not u sed to interpret this result as normal/abnor mal. NRBC x10^3 (test <0.01 See_Comment [Automated message] code = 7111573117) The syste m which generated this result transmitted ref erence range: 10*3/?L. The reference range was not used to interpr et this result as normal/abnormal . GRAN MAT (NEUT) % 51.7 % (test code = 770-8) IMM GRAN % (test 0.40 % code = 8169351674) LYMPH % (test code 37.9 % = 736-9) MONO % (test code 7.5 % = 5905-5) EOS % (test code = 1.5 % 713-8) BASO % (test code 1.0 % = 706-2) GRAN MAT 2.67 10*3/uL 1.88-7.09 x10^3(ANC) (test code = 9576289248) IMM GRAN x10^3 <0.03 0-0.06 (test code = 8477313348) LYMPH x10^3 (test 1.96 10*3/uL 1.32-3.29 code = 731-0) MONO x10^3 (test 0.39 10*3/uL 0.33-0.92 code = 742-7) EOS x10^3 (test 0.08 10*3/uL 0.03-0.39 code = 711-2) BASO x10^3 (test 0.05 10*3/uL 0.01-0.07 code = 704-7) [facility] AlliancePOWY [id number] 20:28:00 Test Item Value Reference Range Interpretation Comments POCT PREG (test code = 1605) NEGATIVE On board controls acceptable with present C Line (test code = 3574) POCT PREG LOT # (test code = 3575) [id number] POCT PREG TEST DATE (test 11/15/2020 code = 3576) Lab Interpretation (test code = Normal 30628-6) [facility]"
[2022-12-25 14:46] LABS: Absolute Lymphocytes (CBC) 1.2 K/uL (0.7-4.9); Hematocrit 40.8 % (36.0-45.0); Lymphocytes % 20.2 % (15.3-44.8); MCV 94.8 fL (80-100)
[2022-12-25 14:51] LABS: Protime INR 1.13
[2022-12-25] MEDS ORDERED: METHYLPREDNISOLONE 125 MG INJ ONE (14:57)
[2022-12-25] MEDS ORDERED: LEVALBUTEROL 1.25 MG/3 ML NEB ONE (14:57)
[2022-12-25] MEDS ORDERED: KETOROLAC 30 MG/ML INJ ONE (15:09)
[2022-12-25 15:13] LABS: Magnesium 1.9 mg/dL (1.6-2.4); Potassium 3.9 mmol/L (3.5-5.1); Troponin High Sensitivity 3.8 pg/mL (<58.9)
[2022-12-25 15:29] LABS: SARS-COV-2 RT PCR NEGATIVE (NEGATIVE)
--- NOTE | 2022-12-25 15:47 | RAD REPORT ---
EXAM DESCRIPTION: RAD - Chest Single View - 12/25/2022 3:29 pm CLINICAL HISTORY: Cough Chest pain. COMPARISON: Chest Single View dated 04/28/2021; Chest Pa And Lat (2 Views) dated 05/11/2017; CHEST SIN GLE VIEW dated 01/16/2013 FINDINGS: Portable technique limits examination quality. The lungs are grossly clear. The heart is normal in size. No displaced fractures. IMPRESSION: No acute intrathoracic process suspected.
--- NOTE | 2022-12-25 16:15 | EDPHYS ---
Physician Documentation [facility] Name: Susan Madrigal Age: 42 yrs Sex: Female : 1980 Arrival Date: 12/25/2022 Time: 13:30 Bed 16 Private MD: ED Physician Bib Akhtar HPI: 12/25 14:00 This 42 yrs old Female presents to ER via Ambulatory with complaints of Shortness Of cp Breath. 14:00 The patient has shortness of breath at rest. cp 14:00 Onset: The symptoms/episode began/occurred 4 day(s) ago. Duration: The symptoms are cp continuous, and are steadily getting worse. The patient's shortness of breath is aggravated by light activity. Associated signs and symptoms: Pertinent positives: non-productive cough, sore throat, Pertinent negatives: chest pain, diaphoresis, fever, vomiting. Severity of symptoms: in the emergency department the symptoms are unchanged despite home interventions. Historical: - Allergies: 13:33 No Known Allergies; aa5 - PMHx: 13:33 Anxiety; ibs; Lupus; lymphatic collitis; Endometriosis; aa5 - Immunization history:: Adult Immunizations unknown. - Social history:: Smoking status: Patient reports the use of cigarette tobacco products, smokes one-half pack cigarettes per day, Reported history of juuling and/or vaping. ROS: 14:05 Constitutional: Negative for chills, fever, poor PO intake. cp 14:05 Eyes: Negative for injury, pain, redness, and discharge. cp 14:05 ENT: Negative for drainage from ear(s), ear pain, sore throat, difficulty swallowing, difficulty handling secretions. 14:05 Cardiovascular: Negative for chest pain, edema, palpitations. 14:05 Respiratory: Positive for cough, shortness of breath, wheezing. 14:05 Abdomen/GI: Negative for abdominal pain, vomiting, diarrhea, constipation. 14:05 Neuro: Negative for altered mental status, dizziness, headache, weakness. 14:05 All other systems are negative. Exam: 14:10 Constitutional: The patient appears in no acute distress, alert, awake, cp non-diaphoretic, non-toxic, well developed, well nourished. 14:10 Head/Face: Normocephalic, atraumatic. cp 14:10 Eyes: Periorbital structures: appear normal, Conjunctiva: normal, no exudate, no injection, Sclera: no appreciated abnormality, Lids and lashes: appear normal, bilaterally. 14:10 ENT: External ear(s): are unremarkable, Ear canal(s): are normal, clear, TM's: dullness, bilaterally, Nose: is normal, Mouth: Lips: moist, Oral mucosa: moist, Posterior pharynx: Airway: no evidence of obstruction, patent, Tonsils: with erythema, no enlargement, no exudate, swelling, is not appreciated, erythema, that is mild, exudate, is not appreciated. 14:10 Neck: ROM/movement: is normal, is supple, without pain, no range of motions limitations. 14:10 Chest/axilla: Inspection: normal. 14:10 Cardiovascular: Rate: tachycardic, Rhythm: regular, Edema: is not appreciated, JVD: is not appreciated. 14:10 Respiratory: the patient does not display signs of respiratory distress, Respirations: normal, no use of accessory muscles, no retractions, labored breathing, is not present, Breath sounds: bronchial sounds, that are mild, are heard diffusely, stridor, is not appreciated, wheezing: that is mild, is heard diffusely. 14:10 Abdomen/GI: Exam negative for discomfort, distension, guarding, Inspection: abdomen appears normal. 14:10 Back: pain, is absent, ROM is normal. 14:10 Neuro: Orientation: to person, place \T\ time. Mentation: is normal, Motor: moves all fours, strength is normal, Sensation: is normal. 14:35 ECG was reviewed by the Attending Physician. cp Vital Signs: 13:32 BP 112 / 78; Pulse 128; Resp 28 S; Temp 99.0(TE); Pulse Ox 96% on R/A; Weight 70.31 kg aa5 (R); Height 5 ft. 8 in. (172.72 cm) (R); 15:00 BP 122 / 75; Pulse 82; Resp 14; Pulse Ox 99% ; bp 16:10 BP 114 / 73; Pulse 102; Resp 17; Pulse Ox 96% ; bp 13:32 Body Mass Index 23.57 (70.31 kg, 172.72 cm) aa5 MDM: 13:43 Patient medically screened. cp 14:00 Differential diagnosis: Bronchitis CHF exacerbation, Chronic Obstructive Pulmonary cp Disease Myocardial Infarction pneumonia, Pneumothorax pulmonary edema, Pulmonary Embolism Sepsis. 16:13 Data reviewed: vital signs, nurses notes, lab test result(s), EKG, radiologic studies, cp plain films. 16:13 Consideration of Admission/Observation Escalation of care including cp admission/observation considered. Test considered but Not performed: CT: chest for PE. Response to treatment: the patient's symptoms have markedly improved after treatment, and as a result, I will discharge patient. 12/25 13:57 Order name: Basic Metabolic Panel; Complete Time: 15:51 cp 12/25 15:51 Interpretation: Normal except: GLUC 118; GFR 75. cp 12/25 13:57 Order name: CBC with Diff; Complete Time: 15:05 cp 12/25 15:51 Interpretation: Normal except: EOSINOPHIL % 4.5. cp 12/25 13:57 Order name: D-Dimer; Complete Time: 15:05 cp 12/25 15:05 Interpretation: D-DIMER 380; Reviewed. 12/25 13:57 Order name: Magnesium; Complete Time: 15:51 cp 12/25 15:51 Interpretation: Reviewed. cp 12/25 13:57 Order name: NT PRO-BNP; Complete Time: 15:51 cp 12/25 15:51 Interpretation: Abnormal: NT PRO-BNP 138. cp 12/25 13:57 Order name: PT-INR; Complete Time: 15:05 cp 12/25 13:57 Order name: Troponin HS; Complete Time: 15:51 cp 12/25 15:51 Interpretation: Reviewed. 12/25 13:57 Order name: XRAY Chest (1 view); Complete Time: 15:51 cp 12/25 15:51 Interpretation: Report review. 12/25 13:57 Order name: COVID-19/FLU A+B; Complete Time: 15:51 cp 12/25 13:57 Order name: Strep; Complete Time: 15:51 cp 12/25 15:12 Order name: Throat Culture EDWV 12/25 13:57 Order name: EKG; Complete Time: 13:58 cp 12/25 13:57 Order name: Cardiac monitoring; Complete Time: 14:32 cp 12/25 13:57 Order name: EKG - Nurse/Tech; Complete Time: 14:32 cp 12/25 13:57 Order name: IV Saline Lock; Complete Time: 14:38 cp 12/25 13:57 Order name: Labs collected and sent; Complete Time: 14:38 cp 12/25 13:57 Order name: O2 Per Protocol; Complete Time: 14:38 cp 12/25 13:57 Order name: O2 Sat Monitoring; Complete Time: 14:40 cp EC:35 Rate is 83 beats/min. Rhythm is regular. MD interval is normal. QRS interval is normal. cp QT interval is normal. Interpreted by me. Reviewed by me. Administered Medications: 14:30 Drug: Xopenex (levalbuterol) (3) 1.25 mg Route: Inhalation; bp 14:30 Drug: SOLU-Medrol (methylPrednisoLONE) 125 mg Route: IVP; Site: right antecubital; bp 16:34 Follow up: Response: Marked relief of symptoms bp 15:09 Drug: Ketorolac 15 mg Route: IVP; Site: right antecubital; bp 16:33 Follow up: Response: Pain is decreased bp Disposition Summary: 12/25/22 16:14 Discharge Ordered Location: Home cp Problem: new cp Symptoms: have improved cp Condition: Stable cp Diagnosis - Cough cp - Wheezing cp - Shortness of breath cp Followup: cp - With: Private Physician - When: 2 - 3 days - Reason: Recheck today's complaints Discharge Instructions: - Discharge Summary Sheet cp - Shortness of Breath, Adult cp - Cough, Adult cp Forms: - Medication Reconciliation Form cp - Thank You Letter cp - Antibiotic Education cp - Prescription Opioid Use cp - Work release form em1 Prescriptions: - albuterol sulfate 90 mcg/actuation Inhalation HFA aerosol inhaler - inhale 1 puff by INHALATION route every 4-6 hours; 1 Inhaler; Refills: 0, cp Product Selection Permitted - Prednisone 20 mg Oral Tablet - take 2 tablets by ORAL route once daily for 5 days; 10 tablet; Refills: 0, cp Product Selection Permitted - Bromfed DM 2-30-10 mg/5 mL Oral syrup - take 10 milliliter by ORAL route every 6 hours; 180 milliliter; Refills: 0, cp Product Selection Permitted Addendum: 12/26/2022 18:03 Co-signature as Attending Physician, Bib Akhtar MD I reviewed the patient's care r t provided by the Advanced Practice Provider and agree with the diagnosis and treatment plan. Signatures: Dispatcher [employer] Maricel Villafuerte, RN RN aa5 John Coreas PA PA cp Peltier, Brian, RN RN bp Bib Akhtar MD MD rt Corrections: (The following items were deleted from the chart) 12/25 13:33 13:33 PMHx: endomitriosis; aa5 aa5
--- NOTE | 2022-12-25 16:15 | ER ---
Nurse's Notes [facility] Name: Susan Madrigal Age: 42 yrs Sex: Female : 1980 Arrival Date: 12/25/2022 Time: 13:30 Bed 16 Private MD: Diagnosis: Cough;Wheezing;Shortness of breath Presentation: 12/25 13:32 Chief complaint: Patient states: itchy throat, runny nose, cough that began Thursday. Pt aa5 reports SOB. Moderate SOB during triage. 13:32 Acuity: JHOAN 3 aa5 13:32 Onset of symptoms was 2022. aa5 13:32 Coronavirus screen: cough unrelated to allergies. Ebola Screen: Patient denies travel aa5 to an Ebola-affected area in the 21 days before illness onset. Initial Sepsis Screen: Does the patient meet any 2 criteria? RR > 20 per min. HR > 90 bpm. Does the patient have a suspected source of infection? No. Patient's initial sepsis screen is negative. Risk Assessment: Do you want to hurt yourself or someone else? Patient reports no desire to harm self or others. 13:32 Method Of Arrival: Ambulatory aa5 Triage Assessment: 13:40 General: Appears distressed, Behavior is cooperative, appropriate for age, anxious. bp Pain: Denies pain. EENT: No deficits noted. Neuro: No deficits noted. Cardiovascular: Rhythm is sinus tachycardia. Respiratory: Reports shortness of breath Onset: The symptoms/episode began/occurred at an unknown time. the patient has moderate shortness of breath. GI: No signs and/or symptoms were reported involving the gastrointestinal system. : No signs and/or symptoms were reported regarding the genitourinary system. Derm: No deficits noted. Musculoskeletal: No deficits noted. Historical: - Allergies: 13:33 No Known Allergies; aa5 - PMHx: 13:33 Anxiety; ibs; Lupus; lymphatic collitis; Endometriosis; aa5 - Immunization history:: Adult Immunizations unknown. - Social history:: Smoking status: Patient reports the use of cigarette tobacco products, smokes one-half pack cigarettes per day, Reported history of juuling and/or vaping. Screenin:40 [facility] ED Fall Risk Assessment (Adult) History of falling in the last 3 months, bp including since admission No falls in past 3 months (0 pts). Abuse screen: Denies threats or abuse. Denies injuries from another. Nutritional screening: No deficits noted. Tuberculosis screening: No symptoms or risk factors identified. Assessment: 13:40 General: SEE TRIAGE NOTE. bp 15:01 Reassessment: No changes from previously documented assessment. Patient and/or family bp updated on plan of care and expected duration. Pain level reassessed. Cardiovascular: Rhythm is sinus rhythm. Respiratory: Airway is patent Respiratory effort is labored, Breath sounds with wheezes bilaterally. 16:10 Reassessment: No changes from previously documented assessment. Patient and/or family bp updated on plan of care and expected duration. Pain level reassessed. 16:33 Reassessment: DC HOME AMBULATORY. bp Vital Signs: 13:32 BP 112 / 78; Pulse 128; Resp 28 S; Temp 99.0(TE); Pulse Ox 96% on R/A; Weight 70.31 kg aa5 (R); Height 5 ft. 8 in. (172.72 cm) (R); 15:00 BP 122 / 75; Pulse 82; Resp 14; Pulse Ox 99% ; bp 16:10 BP 114 / 73; Pulse 102; Resp 17; Pulse Ox 96% ; bp 13:32 Body Mass Index 23.57 (70.31 kg, 172.72 cm) aa5 ED Course: 13:30 Patient arrived in ED. as 13:32 Triage completed. aa5 13:32 Arm band placed on. aa5 13:35 Lloyd Santoyo, RN is Primary Nurse. bp 13:40 Patient has correct armband on for positive identification. Bed in low position. Call bp light in reach. Side rails up X2. 13:42 John Coreas PA is PHCP. cp 13:42 Bib Akhtar MD is Attending Physician. cp 14:30 Initial lab(s) drawn, by pa, sent to lab. EKG done, by ED staff, reviewed by John Coreas kj1 PA. Inserted saline lock: 20 gauge in left antecubital area, using aseptic technique. Blood collected. 14:38 COVID-19/FLU A+B Sent. kj1 14:38 Strep Sent. kj1 15:31 XRAY Chest (1 view) In Process Unspecified. EDMS 15:43 Throat Culture Sent. bp 16:33 No provider procedures requiring assistance completed. IV discontinued, intact, bp bleeding controlled, No redness/swelling at site. Pressure dressing applied. Administered Medications: 14:30 Drug: Xopenex (levalbuterol) (3) 1.25 mg Route: Inhalation; bp 14:30 Drug: SOLU-Medrol (methylPrednisoLONE) 125 mg Route: IVP; Site: right antecubital; bp 16:34 Follow up: Response: Marked relief of symptoms bp 15:09 Drug: Ketorolac 15 mg Route: IVP; Site: right antecubital; bp 16:33 Follow up: Response: Pain is decreased bp Medication: 13:40 VIS not applicable for this client. bp Outcome: 16:14 Discharge ordered by MD. cp 16:33 Discharged to home ambulatory. bp 16:33 Condition: stable 16:33 Discharge instructions given to patient, Instructed on discharge instructions, follow up and referral plans. medication usage, Demonstrated understanding of instructions, follow-up care, medications, Prescriptions given X 3. 16:34 Patient left the ED. bp Signatures: Dispatcher [employer] EDMS Chloe King Audri, RN RN aa5 John Coreas PA PA Lloyd Ibrahim, ANTONIO RN bp Deborah Ugalde kj1 Corrections: (The following items were deleted from the chart) 13:33 13:33 PMHx: endomitriosis; aa5 aa5 13:37 13:32 Initial Sepsis Screen: Does the patient meet any 2 criteria? HR > 90 bpm. Does aa5 the patient have a suspected source of infection? No. Patient's initial sepsis screen is negative. aa5
[2022-12-25 17:26] VITALS: TEMP 99
[2022-12-25 17:28] VITALS: BP 114/73; O2SAT 96
== END 2022-12-25 16:34 | disposition home or self-care (01) ==
LOC: ER 13:29
DX: R05.9 Cough, unspecified (principal); R06.2 Wheezing; R06.02 Shortness of breath; F17.210 Nicotine dependence, cigarettes, uncomplicated; Z20.822 Contact with and (suspected) exposure to COVID-19
CPT/HCPCS: 93005; 87070; 85025; 80048; 36415; 83735; 85610; 85379; 87081; 84484; 83880; 0240U; 71045; 96375; 96374; 99285; J7614; J2930